=== PATIENT | female | born 1965 | race Caucasian/White ===

== ENCOUNTER → 2017-10-06 | Outpatient (CLI) | payer OTHER ==
--- NOTE | 2017-10-08 08:52 | MM ---
Reason for exam: screening (asymptomatic). Last mammogram was performed 2 years and 11 months ago. History: Retro-pectoral silicone gel implants in both breasts, 1995. Physical Findings: A clinical breast exam by your physician is recommended on an annual basis and results should be correlated with mammographic findings. MG Screening Mammo Implant/CAD Bilateral CC, MLO, and ID view(s) were taken. Prior study comparison: November 14, 2014, bilateral MG diag mamm implants MOOSE w CAD. June 24, 2013, CAD bilateral diagnostic mammogram. The breast tissue is almost entirely fat. Bilateral retropectoral silicone implants. No significant changes when compared with prior studies. ASSESSMENT: Negative, BI-RAD 1 RECOMMENDATION: Routine screening mammogram of both breasts in 1 year.
== END | disposition home or self-care (01) ==
LOC: RADMAMWWP 10:43
PROVIDERS: ATTEND Family Medicine
DX: Z12.31 Encounter for screening mammogram for malignant neoplasm of breast (principal)
CPT/HCPCS: 77067

== ENCOUNTER → 2017-10-13 | Outpatient (CLI) | payer OTHER | END | disposition home or self-care (01) | LOC: LABPAT 14:20 | PROVIDERS: ATTEND Orthopaedic Surgery | DX: Z01.818 Encounter for other preprocedural examination (principal) | CPT/HCPCS: 87070 ==

== ENCOUNTER 2017-11-09 07:19 | Inpatient (IN) | payer OTHER ==
[2017-10-29 14:58] VITALS: BMI 40.3
[~2017-11-09 07:19] MED LIST: ACETAMINOPHEN TAB 500 MG TAB PO ONE; DEXAMETHASONE SOD PHOSPHATE 10 MG/ML 1 ML VIAL IV ONE; DIAZEPAM 5 MG TAB PO PRN; HYDROcodone/APAP 5-325MG 1 EACH TAB PO PRN; HYDROmorphone 0.5 MG/0.5 ML SYRINGE IVP PRN; HYDROmorphone 1 MG/ML 1 ML SYRINGE IVP PRN; LIDOCAINE 1% 20 ML VIAL (10MG/ML) FOR IV START INTRADERMA PRN; MAGNESIUM HYDROXIDE 2,400 MG/10 ML CUP PO PRN; MELOXICAM 7.5 MG TAB PO ONE; MIDAZOLAM 2 MG/2 ML VIAL IV PRN; NALOXONE 0.4 MG/ML 1 ML VIAL IV PRN; ONDANSETRON 4 MG/2 ML VIAL IVP ONE; ONDANSETRON 4 MG/2 ML VIAL IVP PRN; ROPIVACAINE 246.25 MG, EPINEPHrine 0.5 MG, KETOROLAC 30 MG, cloNIDine HCL/PF 80 MCG, WA... MISCELLANE ONE; SCOPOLAMINE 1.5MG/72HR PATCH TRANSDERM ONE; TRANEXAMIC ACID 1,000 MG in SODIUM CHLORIDE 0.9% 50 ML IVPB ONE; ceFAZolin IN SWFI 2 GM/20 ML SYRINGE IVP ONE; hydrOXYzine PAMOATE 25 MG CAP PO PRN
[2017-11-09] MEDS: LACTATED RINGERS 1,000 ML IV SCH (08:10)
[2017-11-09 08:11] LABS: Glucose,Whole Blood 193 mg/dL (75-99)
[2017-11-09] MEDS ORDERED: ASPIRIN 325 MG TAB PO SCH (09:00)
[2017-11-09] MEDS ORDERED: SODIUM CHLORIDE 0.9% IRRIG 1,000 ML BTL IRRIGATION ONE (09:30)
[2017-11-09] MEDS ORDERED: PHENYLEPHRINE-0.9% NACL SYG 1 MG/10 ML SYRINGE ONE (09:30)
[2017-11-09] MEDS ORDERED: fentaNYL (PF) 50 MCG/ML 2 ML AMP ONE (09:30)
[2017-11-09] MEDS ORDERED: TRANEXAMIC ACID 1,000 MG/10 ML VIAL ONE (09:30)
[2017-11-09] MEDS ORDERED: SODIUM CHLORIDE 0.9% 100 ML BAG ONE (09:30)
[2017-11-09] MEDS ORDERED: MIDAZOLAM 2 MG/2 ML VIAL ONE (09:30)
[2017-11-09] MEDS ORDERED: PROPOFOL 10 MG/ML 20 ML VIAL IV ONE (09:30)
[2017-11-09] MEDS ORDERED: HEPARIN SODIUM,PORCINE 10,000 UNIT/ML 1 ML VIAL ONE (09:30)
[2017-11-09] MEDS ORDERED: ceFAZolin 3,000 MG in SODIUM CHLORIDE 0.9% IRRIGATIO 3,000 ML IRRIGATION ONE (09:59)
[2017-11-09] MEDS ORDERED: LACTATED RINGERS 1,000 ML IV ONE (10:17)
--- NOTE | 2017-11-09 11:03 | P.OP ---
Date of Procedure: 11/09/17 Preoperative Diagnosis: Severe osteoarthritis left hip Postoperative Diagnosis: Severe osteoarthritis left hip Procedure(s) Performed: Left total hip arthroplasty with a direct anterior approach Implants: Caputo and nephew Polarstem size 1 standard Caputo & Nephew R3, 3 hole acetabular shell, 52 mm Captuo & Nephew reflection 6.5 mm cancellus screw, 20 mm 2 Caputo & Nephew R3, XLPE 20 acetabular liner Caputo & Nephew Oxinium femoral head 36 m, -3 All components were press-fit. The articulation is Oxinium on polyethylene. Anesthesia: spinal Surgeon: Peterson Dejesus Natural Remedy Consultant #1: Florencia Casillas Estimated Blood Loss (ml): 50 Pathology: other (Femoral head) Condition: stable Disposition: PACU Indications for Procedure: After failure of conservative treatment we discussed the surgical and nonsurgical treatment options at length. Patient wishes to proceed with a total hip arthroplasty with a direct anterior approach. Complications specific to this procedure were discussed at length, including but not limited to infection, leg length discrepancy, dislocation, and nerve injury. Patient is aware of all these complications and informed consent was obtained Operative Findings: The operative findings are consistent with severe osteoarthritis of the left hip Description of Procedure: Patient was seen and evaluated in the preoperative area, consent was reviewed, and the surgical site was marked with a skin marker. Patient was then brought to the operating room and given prophylactic antibiotics intravenously. 1 g of Tranexamic acid was also given. A spinal anesthetic was administered by the anesthesia department. The patient was then placed on the [place] table with the bony prominences well-padded. The hip area was then prepped and draped in usual sterile fashion. A universal timeout was then performed, which confirmed the patient's name, surgical site, ALLERGIES, and procedure being performed. Next the incision site was located at 1 cm distal and 1 cm lateral to the anterior superior iliac spine. The skin and subcutaneous tissues were sharply incised. Incision was carefully dissected down to the fascia overlying the tensor fascia homar muscle. This fascia was then incised in line with the incision. Next, using blunt finger dissection, the tensor fascia homar muscle was dissected off its investing fascia. The muscle was then carefully retracted laterally with a cobra retractor over the lateral neck of the femur. Next, the circumflex vessels were identified and cauterized using the AquaMantis device. The anterior hip capsule was then exposed. The capsule was then opened and an inverted T fashion. Cobra retractors were then placed intracapsularly. The proximal femur was then visualized. The femoral neck was then osteotomized appropriate level above the lesser trochanter. Small amount of traction was placed with the [place] table. A small wedge of bone was then removed from the remaining femoral head. Next, using a corkscrew femoral head was easily removed from the acetabulum. On gross visual inspection, the femoral head had complete loss of articular cartilage in multiple periarticular osteophytes. Attention was then turned to the acetabulum. the acetabulum was exposed and any remaining labrum was excised. Sequential reaming of the acetabulum was performed using fluoroscopic guidance. When the appropriate size was reached, a trial was then placed. The position and fit of the trial was checked with fluoroscopy. The trial was then removed. Then, using fluoroscopic guidance, the final implant was impacted at 20 of anteversion and 40 of abduction, and fully seated in the acetabulum. 2 screws were then placed in the acetabulum. Again fluoroscopy was used to check position of the screws. Next, the liner was then impacted, with a 20 elevated liner located in the anterior superior quadrant. Component locking was confirmed. Attention was then directed to the femur. With the aid of the [place] table, the femur was externally rotated to approximately 130, extended, and abducted under the opposite leg. A side hook was then placed under the proximal femur, and the side hook elevator was used to elevate the proximal femur. Retractors were then placed. A capsular release was performed, as well as a release of the conjoined tendon, which afforded excellent visualization of the proximal femur. Next, a box osteotome was used to lateralize the proximal femur. A redye hand was then used to locate the femoral canal. Sequential broaching was then performed with appropriate size which afforded excellent fixation in the proximal femur. A trial was then placed with appropriate head and neck, and the hip was gently reduced with the aid of the [place] table. Fluoroscopy was then used to check position of the components, as well as to ensure equal leg lengths. The hip was then gently dislocated and the trials were then removed. Final implants were then impacted and the hip was again reduced. Final fluoroscopic x-rays confirmed that the components were in anatomic position, as well as equal leg lengths. The hip was also taken through range of motion, and found to be stable. The hip was then copiously irrigated with antibiotic solution with pulsatile lavage. The hip was then irrigated with Irrisept solution. The soft tissues were then injected with a ropivacaine solution, which consisted of 246.25 mg of ropivacaine, 0.5 mg of epinephrine, 30 mg of Toradol, 80 g of clonidine, and 48.45 mL of sterile water, for a total of 100 mL of fluid injected. A second dose of 1 g of Tranexamic acid was also given. the fascia was then closed with 2-0 strata fix suture. The subcutaneous tissue was closed with 3-0 Vicryl. The subcuticular tissue was closed with 3-0 strata fix suture. The skin was then closed with Dermabond glue and a sterile silver dressing. The patient was then transferred to the recovery room in stable condition. The leasing assistant TAMERA Steen was required due to the complexity of surgery, and the need for skilled surgical asst for positioning, draping, exposure, retraction, and closure of the wound.
--- NOTE | 2017-11-09 11:13 | FL ---
Fluoroscopy HISTORY: Hip arthroplasty 59 seconds fluoroscopy time supplied to the referring clinician. 2 intraoperative C-arm images docum ent the procedure. See dictated report from orthopedic surgery.
[2017-11-09 11:41] LABS: Glucose,Whole Blood 196 mg/dL (75-99)
[2017-11-09] MEDS ORDERED: INSULIN ASPART 100 UNIT/ML 1 ML 10 ML VIAL SQ ONE (11:42)
--- NOTE | 2017-11-09 11:50 | XR ---
EXAMINATION TYPE: XR Hip Limited LT DATE OF EXAM: 11/09/2017 COMPARISON: NONE HISTORY: Postop TECHNIQUE: One view submitted. FINDINGS: There is a prosthetic hip in near anatomic alignment. There is soft tissue edema and emphysema. IMPRESSION: 1. Postoperative change. Appears in near-anatomic alignment.
[2017-11-09] MEDS ORDERED: ALBUTEROL NEBULIZED 2.5 MG/3 ML INHALATION PRN (13:29)
[2017-11-09] MEDS ORDERED: NICOTINE POLACRILEX 2 MG GUM BUCCAL PRN (13:38)
--- NOTE | 2017-11-09 13:38 | P.CONS ---
History of Present Illness - Reason for Consult Consult date: 11/09/17 Medical management Requesting physician: Peterson Dejesus - Chief Complaint Left total hip arthroplasty - History of Present Illness This is a 52-year-old female with a known past medical history of osteoarthritis , hypertension, hyperlipidemia, diabetes mellitus type 2, and asthma. We have been consulted for medical management. She underwent a left total hip arthroplasty today. Tolerated surgery well. Pain is controlled. She denies any chest pain or shortness of breath. Denies any nausea or vomiting. She does report having some loose stools yesterday after eating Oreo cookies. She does report one loose stool this morning prior to surgery. Since then she has had no bowel movement. Senokot has been discontinued at this point. Patient denies any abdominal pain any fevers chills or sweats. Denies any burning with urination. Review of Systems Please refer to HPI otherwise unremarkable Past Medical History Past Medical History: Diabetes Mellitus, Hyperlipidemia, Hypertension Additional Past Medical History / Comment(s): Arthritis, Carpal tunnel syndrome History of Any Multi-Drug Resistant Organisms: None Reported Past Surgical History: Tonsillectomy, Uterine Ablation Additional Past Surgical History / Comment(s): BILATERAL BREAST INMPLANTS 1995 Past Anesthesia/Blood Transfusion Reactions: No Reported Reaction Additional Past Anesthesia/Blood Transfusion Reaction / Comm: HARD TO WAKE UP AFTER IMPLANTS. Smoking Status: Former smoker - Past Family History Mother Family Medical History: Diabetes Mellitus, Hypertension, Myocardial Infarction ( [place]) Medications and Allergies Home Medications Medication Instructions Recorded Confirmed Type Albuterol Sulfate [Proair Hfa] 2 puff INHALATION RT-Q4H PRN 07/20/13 11/09/17 History Aspirin 81 mg PO DAILY 07/20/13 11/09/17 History Metoprolol Tartrate [Lopressor] 25 mg PO BID 07/20/13 11/09/17 History Simvastatin 20 mg PO HS 07/20/13 11/09/17 History metFORMIN HCL [Glucophage] 500 mg PO BID 07/20/13 11/09/17 History Cetirizine HCl [Zyrtec] 10 mg PO DAILY 10/29/17 11/09/17 History Diclofenac Sodium [Voltaren] 75 mg PO BID 10/29/17 11/09/17 History Niacin [Plain Niacin] 500 mg PO DAILY 10/29/17 11/09/17 History [place]ettleton-3 Fatty Acids [[place]ettleton-3] 1,000 mg PO DAILY 10/29/17 11/09/17 History Turmeric Root Extract [Turmeric] 500 mg PO DAILY 10/29/17 11/09/17 History Venlafaxine HCl [Effexor XR] 150 mg PO BID 10/29/17 11/09/17 History buPROPion SR [Wellbutrin Sr] 150 mg PO DAILY 10/29/17 11/09/17 History tiZANidine [Zanaflex] 2 mg PO BID 10/29/17 11/09/17 History Lisinopril [Zestril] 10 mg PO DAILY 11/09/17 11/09/17 History Allergies Allergy/AdvReac Type Severity Reaction Status Date / Time No Known Allergies Allergy Verified 11/09/17 12:19 Physical Exam Vitals: Vital Signs Temp Pulse Resp BP Pulse Ox 11/09/17 11:58 100 16 119/57 98 11/09/17 11:32 99 16 118/58 96 11/09/17 11:20 97.0 F L 108 H 16 118/55 93 L 11/09/17 07:44 98.1 F 112 H 20 172/88 97 Intake and Output 11/08/17 11/09/17 11/09/17 22:59 06:59 14:59 Intake Total 1751 Output Total 50 Balance 1701 Intake: IV 1751 Output: Estimated Blood Loss 50 Head normocephalic Neck supple Lungs clear to auscultation bilaterally no wheezing or crackles Heart regular rate and rhythm S1-S2, no rub or gallop Abdomen is soft nontender nondistended positive bowel sounds no hepatosplenomegaly Extremities no edema. Left hip bandage clean dry and intact Neuro alert and orientated to 3 Results Labs: Abnormal Lab Results - Last 24 Hours (Table) 11/09/17 11/09/17 Range/Units 08:04 11:39 POC Glucose (mg/dL) 193 H 196 H (75-99) mg/dL Assessment and Plan Assessment: 1. Left hip osteoarthritis: Status post left total hip arthroplasty. Continue aspirin 325 mg twice a day for DVT prophylaxis. Pain control per orthopedic protocol. Continue PT 2. Diabetes mellitus type 2: Continue metformin. Add sliding scale coverage. Check A1c 3. Essential hypertension resume blood pressure meds. Blood pressure stable 4. History of mild intermittent asthma. Continue with albuterol inhaler as needed. No evidence of exacerbation 5. Hyperlipidemia 6. Nicotine dependence: Patient reports that she chews Nicorette gum every 2-3 hours. She has not smoked a cigarette in 7 years 7. Diarrhea prior to admission. Now improving. We'll monitor. Discontinue stool softener GI prophylaxis Pepcid Thank you for this consultation. We will continue to follow along during patient's hospitalization. Time with Patient: Greater than 30 (Greater than 60% of the total time spent in counseling and coordination of care.I performed an examination of the patient and discussed their management with the physician Automatic Head Sawyer. I have reviewed the Physician Automatic Head Sawyer's notes and agree with the documented findings and plan of care)
[2017-11-09] MEDS: HYDROcodone/APAP 5-325MG 1 EACH TAB PO PRN ×2 (14:17→20:34)
[2017-11-09] MEDS: SODIUM CHLORIDE 0.9% 1,000 ML IV SCH (16:12)
[2017-11-09] MEDS: HYDROmorphone 1 MG/ML 1 ML SYRINGE IVP PRN (16:13)
[2017-11-09 17:18] LABS: Glucose,Whole Blood 236 mg/dL (75-99)
[2017-11-09] MEDS: INSULIN ASPART 100 UNIT/ML 1 ML 10 ML VIAL SQ SCH ×2 (18:41→20:36)
[2017-11-09] MEDS: metFORMIN 500 MG TAB PO SCH (18:41)
[2017-11-09] MEDS: ceFAZolin IN SWFI 2 GM/20 ML SYRINGE IVP SCH (19:22)
[2017-11-09 20:07] LABS: Glucose,Whole Blood 299 mg/dL (75-99)
[2017-11-09] MEDS: ATORVASTATIN 10 MG TAB PO SCH (20:35)
[2017-11-09] MEDS: VENLAFAXINE HCL ER 150 MG CAP PO SCH (20:35)
[2017-11-09] MEDS: ASPIRIN 325 MG TAB PO SCH (20:35)
[2017-11-09] MEDS: METOPROLOL TARTRATE 25 MG TAB PO SCH (20:35)
[2017-11-09] MEDS ORDERED: SENNOSIDES-DOCUSATE SODIUM 1 EACH TAB PO SCH (21:00)
[2017-11-10] MEDS: SODIUM CHLORIDE 0.9% 1,000 ML IV SCH ×2 (00:25→14:24)
[2017-11-10] MEDS: ceFAZolin IN SWFI 2 GM/20 ML SYRINGE IVP SCH (01:26)
[2017-11-10] MEDS: HYDROmorphone 1 MG/ML 1 ML SYRINGE IVP PRN ×2 (01:30→06:05)
[2017-11-10] MEDS: LACTATED RINGERS 1,000 ML IV SCH (06:20)
[2017-11-10 07:18] LABS: Glucose,Whole Blood 270 mg/dL (75-99)
[2017-11-10] MEDS: metFORMIN 500 MG TAB PO SCH ×2 (08:11→17:42)
[2017-11-10] MEDS: buPROPion SR 150 MG TABLET.ER PO SCH (08:11)
[2017-11-10] MEDS: INSULIN ASPART 100 UNIT/ML 1 ML 10 ML VIAL SQ SCH ×4 (08:11→20:41)
[2017-11-10] MEDS: ASPIRIN 325 MG TAB PO SCH ×2 (08:11→20:40)
[2017-11-10] MEDS: LISINOPRIL 10 MG TAB PO SCH (08:11)
[2017-11-10] MEDS: MELOXICAM 7.5 MG TAB PO SCH (08:11)
[2017-11-10] MEDS: NIACIN TR 500 MG CAPSULE.ER PO SCH (08:11)
[2017-11-10] MEDS: FAMOTIDINE 20 MG TAB PO SCH (08:12)
[2017-11-10] MEDS: LORATADINE 10 MG TAB PO SCH (08:12)
[2017-11-10] MEDS: METOPROLOL TARTRATE 25 MG TAB PO SCH ×2 (08:12→20:40)
[2017-11-10] MEDS: VENLAFAXINE HCL ER 150 MG CAP PO SCH ×2 (08:12→20:40)
[2017-11-10] MEDS ORDERED: HYDROcodone/APAP 7.5-325MG 1 EACH TAB PO PRN (08:37)
[2017-11-10] MEDS ORDERED: NON-FORMULARY DRUG (Omega-3 Fatty Acids [Omega-3] 1,000 MG) PO SCH (09:00)
--- NOTE | 2017-11-10 09:13 | P.DS ---
Providers Date of admission: 11/09/17 07:19 Expected date of discharge: 11/10/17 Attending physician: Peterson Dejesus Consults: 11/09/17 07:02 Consult Physician Routine Consulting Provider: Obed Capellan Consult Reason/Comments: medical mangement Do you want consulting provider notified?: Yes Primary care physician: Stated None - Discharge Diagnosis(es) (1) Primary osteoarthritis of left hip Current Visit: Yes Status: Acute (2) S/P total hip arthroplasty Current Visit: Yes Status: Acute Hospital Course: This is a 52-year-old female with known history of degenerative arthritis of the left hip. The patient presents for evaluation. After discussion and consideration patient elects to proceed with total hip arthroplasty. The patient is seen preoperatively by Dr. Dejesus and medically cleared for surgery by their primary care physician. Patient is admitted to [facility] on 11/09/2017 for total hip arthroplasty. The procedures performed without complication or sequelae. The patient is doing well postoperatively. Labs and vital signs are stable on day of discharge. On day of discharge patient's hip incision is healing well. There is minimal erythema. There is no drainage noted at this time. There is minimal soft tissue swelling to the hip and thigh. Patient has full foot and ankle motion without difficulty or pain. Neurovascular status to the left lower extremity is intact. Patient is discharged home in good condition. Please see med rec for accurate list of home medications. Plan - Discharge Summary Discharge Rx Participant: Yes New Discharge Prescriptions: New Aspirin 325 mg PO BID #60 tab HYDROcodone/APAP 7.5-325MG [Tanner 7.5-325] 1 - 2 tab PO Q4-6H PRN #84 tab PRN Reason: Pain Sennosides [Senokot] 1 tab PO BID PRN #60 tablet PRN Reason: Constipation No Action Metoprolol Tartrate [Lopressor] 25 mg PO BID metFORMIN HCL [Glucophage] 500 mg PO BID Albuterol Sulfate [Proair Hfa] 2 puff INHALATION RT-Q4H PRN PRN Reason: Shortness Of Breath Simvastatin 20 mg PO HS Aspirin 81 mg PO DAILY buPROPion SR [Wellbutrin Sr] 150 mg PO DAILY Cetirizine HCl [Zyrtec] 10 mg PO DAILY Diclofenac Sodium [Voltaren] 75 mg PO BID Niacin [Plain Niacin] 500 mg PO DAILY [place]-3 Fatty Acids [Volga-3] 1,000 mg PO DAILY tiZANidine [Zanaflex] 2 mg PO BID Turmeric Root Extract [Turmeric] 500 mg PO DAILY Venlafaxine HCl [Effexor XR] 150 mg PO BID Lisinopril [Zestril] 10 mg PO DAILY Discharge Medication List Albuterol Sulfate [Proair Hfa] 2 puff INHALATION RT-Q4H PRN 07/20/13 [History] Aspirin 81 mg PO DAILY 07/20/13 [History] Metoprolol Tartrate [Lopressor] 25 mg PO BID 07/20/13 [History] Simvastatin 20 mg PO HS 07/20/13 [History] metFORMIN HCL [Glucophage] 500 mg PO BID 07/20/13 [History] Cetirizine HCl [Zyrtec] 10 mg PO DAILY 10/29/17 [History] Diclofenac Sodium [Voltaren] 75 mg PO BID 10/29/17 [History] Niacin [Plain Niacin] 500 mg PO DAILY 10/29/17 [History] Volga-3 Fatty Acids [Volga-3] 1,000 mg PO DAILY 10/29/17 [History] Turmeric Root Extract [Turmeric] 500 mg PO DAILY 10/29/17 [History] Venlafaxine HCl [Effexor XR] 150 mg PO BID 10/29/17 [History] buPROPion SR [Wellbutrin Sr] 150 mg PO DAILY 10/29/17 [History] tiZANidine [Zanaflex] 2 mg PO BID 10/29/17 [History] Lisinopril [Zestril] 10 mg PO DAILY 11/09/17 [History] Aspirin 325 mg PO BID #60 tab 11/10/17 [Rx] HYDROcodone/APAP 7.5-325MG [Tanner 7.5-325] 1 - 2 tab PO Q4-6H PRN #84 tab [Rx] Sennosides [Senokot] 1 tab PO BID PRN #60 tablet 11/10/17 [Rx] Follow up Appointment(s)/Referral(s): Peterson Dejesus DO [Doctor of Osteopathic Medicine] - 2 Weeks Activity/Diet/Wound Care/Special Instructions: Weightbearing as tolerated with walker Leave dressing intact. Dressing may be removed by home care nurse in 10 days. May shower with dressing on. Follow-up with [facility] in 2 weeks, please call with any questions or concerns [phone] Discharge Disposition: HOME WITH HOME HEALTH SERVICES
[2017-11-10] MEDS: HYDROcodone/APAP 7.5-325MG 1 EACH TAB PO PRN ×2 (09:37→19:10)
[2017-11-10 11:44] LABS: Glucose,Whole Blood 189 mg/dL (75-99)
[2017-11-10 12:01] LABS: Basophils % (A) 0 %; Eosinophils # (A) 0.1 k/uL (0-0.7); Eosinophils % (A) 1 %; HGB 11.2 gm/dL (11.4-16.0); Hypochromasia Moderate; Lymphocytes # (A) 1.3 k/uL (1.0-4.8); Lymphocytes % (A) 14 %; MCH 29.8 pg (25.0-35.0); MCHC 31.9 g/dL (31.0-37.0); MCV 93.3 fL (80.0-100.0); Mean Platelet Volume 8.6; Monocytes # (A) 0.8 k/uL (0-1.0); Monocytes % (A) 8 %; Neutrophils # (A) 7.5 k/uL (1.3-7.7); Neutrophils % (A) 75 %; Platelet Count 209 k/uL (150-450); RBC 3.75 m/uL (3.80-5.40); RDW 13.6 % (11.5-15.5); WBC 9.9 k/uL (3.8-10.6)
[2017-11-10 12:10] LABS: ALT 34 U/L (9-52); AST 36 U/L (14-36); Albumin 3.6 g/dL (3.5-5.0); Alkaline Phosphatase 128 U/L (38-126); Anion Gap 10 mmol/L; Blood Urea Nitrogen 17 mg/dL (7-17); Calcium 9.2 mg/dL (8.4-10.2); Carbon Dioxide 25 mmol/L (22-30); Chloride 105 mmol/L (98-107); Glucose 250 mg/dL (74-99); Potassium 4.5 mmol/L (3.5-5.1); Sodium 140 mmol/L (137-145); Total Bilirubin 0.2 mg/dL (0.2-1.3); Total Protein 6.6 g/dL (6.3-8.2)
--- NOTE | 2017-11-10 13:15 | P.PN ---
Subjective Progress Note Date: 11/10/17 This is a 52-year-old female with a known past medical history of osteoarthritis , hypertension, hyperlipidemia, diabetes mellitus type 2, and asthma. We have been consulted for medical management. She underwent a left total hip arthroplasty today. Tolerated surgery well. Pain is controlled. She denies any chest pain or shortness of breath. Denies any nausea or vomiting. She does report having some loose stools yesterday after eating Oreo cookies. She does report one loose stool this morning prior to surgery. Since then she has had no bowel movement. Senokot has been discontinued at this point. Patient denies any abdominal pain any fevers chills or sweats. Denies any burning with urination. 11/10/2017 patient is status post left total hip arthroplasty. Patient reporting pain in that left hip. She rates it a 9 out of 10. Orthopedics have cleared her for discharge. Patient has been tachycardic today. EKG showing sinus tachycardia. Heart rate as high as 127. Now heart rate is in the low 100s. She is on a beta maría. Her tachycardia could be pain related. She also is chewing Nicorette gum every couple of hours. Discussed with patient today decrease how much Nicorette gum she should use. Denies any chest pain. Denies any heart palpitations. Denies any shortness of breath. Denies any nausea vomiting bowel movement changes or urinary symptoms. Objective - Vital Signs Vital signs: Vital Signs Temp 97.5 F L 11/10/17 07:00 Pulse 127 H 11/10/17 07:00 Resp 16 11/10/17 07:00 BP 138/66 11/10/17 07:00 Pulse Ox 94 L 11/10/17 07:00 Intake & Output 11/09/17 11/10/17 11/10/17 18:59 06:59 18:59 Intake Total 1881 1240 Output Total 450 Balance 1431 1240 Weight 106.594 kg Intake: IV 1881 520 Sodium Chloride 0.9% 1, 130 520 000 ml @ 65 mls/hr IV . [id number] ANA Rx#:[id number] Intake, IV Titration 520 Amount Sodium Chloride 0.9% 1, 520 000 ml @ 65 mls/hr IV . [id number] ANA Rx#:[id number] Other 200 Output: Urine 400 Estimated Blood Loss 50 Other: # Voids 3 2 - Exam Head normocephalic Neck supple Lungs clear to auscultation bilaterally no wheezing or crackles Heart regular rate and rhythm S1-S2, no rub or gallop Abdomen is soft nontender nondistended positive bowel sounds no hepatosplenomegaly Extremities no edema. Bruising around dressing site Neuro alert and orientated to 3 - Labs CBC & Chem 7: 11/10/17 07:55 11/10/17 07:55 Labs: Abnormal Lab Results - Last 24 Hours (Table) 11/09/17 11/09/17 11/10/17 Range/Units 17:09 20:05 07:10 RBC (3.80-5.40) m/uL Hgb (11.4-16.0) gm/dL Glucose (74-99) mg/dL POC Glucose (mg/dL) 236 H 299 H 270 H (75-99) mg/dL Alkaline Phosphatase (38-126) U/L 11/10/17 11/10/17 11/10/17 Range/Units 07:55 07:55 11:36 RBC 3.75 L (3.80-5.40) m/uL Hgb 11.2 L (11.4-16.0) gm/dL Glucose 250 H (74-99) mg/dL POC Glucose (mg/dL) 189 H (75-99) mg/dL Alkaline Phosphatase 128 H (38-126) U/L Assessment and Plan Assessment: 1. Left hip osteoarthritis: Status post left total hip arthroplasty. Continue aspirin 325 mg twice a day for DVT prophylaxis. 2. Diabetes mellitus type 2: Continue metformin. Add sliding scale coverage. Patient did have problems elevated blood sugars secondary to the dexamethasone given in the OR. Patient was given glucometer. She'll monitor blood sugars 3. Essential hypertension resume blood pressure meds. Blood pressure stable 4. History of mild intermittent asthma. Continue with albuterol inhaler as needed. No evidence of exacerbation 5. Hyperlipidemia 6. Nicotine dependence: Patient reports that she chews Nicorette gum every 2-3 hours. She has not smoked a cigarette in 7 years 7. Diarrhea prior to admission. Now resolved 8. Sinus tachycardia: Possibly related to pain. No evidence of electrolyte abnormality. Continue with her beta maría. Patient will be discharged home with [place] 7.5 one to 2 tabs every 4-6 hours as needed for pain. Recommend that she also cut back on the Nicorette gum. Patient is medically stable for discharge. She has been educated if she starts to have severe heart palpitations, shortness of breath or chest discomfort that she should present back to the emergency room. Patient will follow-up with her PCP in 1 week. I performed an examination of the patient and discussed their management with the physician Treatment Specialist. I have reviewed the Physician Treatment Specialist's notes and agree with the documented findings and plan of care
[2017-11-10] MEDS: ETODOLAC 300 MG CAPSULE PO SCH ×2 (14:23→21:28)
[2017-11-10 16:40] LABS: Glucose,Whole Blood 217 mg/dL (75-99)
[2017-11-10 17:57] LABS: Hemoglobin A1C 8.2 % (4.0-6.0)
[2017-11-10 19:45] LABS: Glucose,Whole Blood 235 mg/dL (75-99)
[2017-11-10] MEDS: ATORVASTATIN 10 MG TAB PO SCH (20:40)
[2017-11-11] MEDS: HYDROcodone/APAP 7.5-325MG 1 EACH TAB PO PRN ×2 (04:24→14:58)
[2017-11-11] MEDS: SODIUM CHLORIDE 0.9% 1,000 ML IV SCH (05:44)
[2017-11-11] MEDS: LACTATED RINGERS 1,000 ML IV SCH (05:45)
[2017-11-11 07:01] LABS: Glucose,Whole Blood 235 mg/dL (75-99)
[2017-11-11 07:38] VITALS: BP 103/64; PULSE 109; RESP 16; TEMP 98.2
[2017-11-11] MEDS: INSULIN ASPART 100 UNIT/ML 1 ML 10 ML VIAL SQ SCH ×2 (08:13→14:58)
[2017-11-11] MEDS: MELOXICAM 7.5 MG TAB PO SCH (08:14)
[2017-11-11] MEDS: metFORMIN 500 MG TAB PO SCH (08:14)
[2017-11-11] MEDS: ASPIRIN 325 MG TAB PO SCH (08:14)
[2017-11-11] MEDS: METOPROLOL TARTRATE 25 MG TAB PO SCH (08:14)
[2017-11-11] MEDS: FAMOTIDINE 20 MG TAB PO SCH (08:15)
[2017-11-11] MEDS: ETODOLAC 300 MG CAPSULE PO SCH (08:15)
[2017-11-11] MEDS: LISINOPRIL 10 MG TAB PO SCH (08:15)
[2017-11-11] MEDS: NIACIN TR 500 MG CAPSULE.ER PO SCH (08:15)
[2017-11-11] MEDS: buPROPion SR 150 MG TABLET.ER PO SCH (08:15)
[2017-11-11] MEDS: VENLAFAXINE HCL ER 150 MG CAP PO SCH (08:15)
[2017-11-11] MEDS: LORATADINE 10 MG TAB PO SCH (08:15)
[2017-11-11 11:39] LABS: Glucose,Whole Blood 149 mg/dL (75-99)
[2017-11-11] MEDS ORDERED: HYDROmorphone 2 MG TAB PO PRN ×2 (13:42)
[2017-11-11] MEDS ORDERED: HYDROmorphone 4 MG TABLET PO PRN (13:43)
--- NOTE | 2017-11-11 13:50 | P.PN ---
Subjective Progress Note Date: 11/11/17 This is a 52-year-old female with a known past medical history of osteoarthritis , hypertension, hyperlipidemia, diabetes mellitus type 2, and asthma. We have been consulted for medical management. She underwent a left total hip arthroplasty today. Tolerated surgery well. Pain is controlled. She denies any chest pain or shortness of breath. Denies any nausea or vomiting. She does report having some loose stools yesterday after eating Oreo cookies. She does report one loose stool this morning prior to surgery. Since then she has had no bowel movement. Senokot has been discontinued at this point. Patient denies any abdominal pain any fevers chills or sweats. Denies any burning with urination. 11/10/2017 patient is status post left total hip arthroplasty. Patient reporting pain in that left hip. She rates it a 9 out of 10. Orthopedics have cleared her for discharge. Patient has been tachycardic today. EKG showing sinus tachycardia. Heart rate as high as 127. Now heart rate is in the low 100s. She is on a beta maría. Her tachycardia could be pain related. She also is chewing Nicorette gum every couple of hours. Discussed with patient today decrease how much Nicorette gum she should use. Denies any chest pain. Denies any heart palpitations. Denies any shortness of breath. Denies any nausea vomiting bowel movement changes or urinary symptoms. 11/11/2017 discharge delayed yesterday due to increased pain. Today patient states that her pain is improved. At this time patient denies chest pain or shortness of breath. Denies any nausea vomiting or diarrhea. Denies any urinary burning or frequency. Plan for discharge home today Objective - Vital Signs Vital signs: Vital Signs Temp 98.2 F 11/11/17 07:38 Pulse 109 H 11/11/17 07:38 Resp 16 11/11/17 07:38 BP 103/64 11/11/17 07:38 Pulse Ox 94 L 11/11/17 07:38 Intake & Output 11/10/17 11/11/17 11/11/17 18:59 06:59 18:59 Intake Total 240 Balance 240 Intake: Oral 240 Other: Voiding Method Toilet # Voids 3 2 - Exam Head normocephalic Neck supple Lungs clear to auscultation bilaterally no wheezing or crackles Heart regular rate and rhythm S1-S2, no rub or gallop Abdomen is soft nontender nondistended positive bowel sounds no hepatosplenomegaly Extremities no edema. Bruising around dressing site Neuro alert and orientated to 3 - Labs CBC & Chem 7: 11/10/17 07:55 11/10/17 07:55 Labs: Abnormal Lab Results - Last 24 Hours (Table) 11/10/17 11/10/17 11/10/17 Range/Units 07:55 16:35 19:44 POC Glucose (mg/dL) 217 H 235 H (75-99) mg/dL Hemoglobin A1c 8.2 H (4.0-6.0) % 11/11/17 11/11/17 Range/Units 06:58 11:34 POC Glucose (mg/dL) 235 H 149 H (75-99) mg/dL Hemoglobin A1c (4.0-6.0) % Assessment and Plan Assessment: 1. Left hip osteoarthritis: Status post left total hip arthroplasty. Continue aspirin 325 mg twice a day for DVT prophylaxis. 2. Diabetes mellitus type 2: Continue metformin. Add sliding scale coverage. Patient did have problems elevated blood sugars secondary to the dexamethasone given in the OR. Patient was given glucometer. She'll monitor blood sugars 3. Essential hypertension resume blood pressure meds. Blood pressure stable 4. History of mild intermittent asthma. Continue with albuterol inhaler as needed. No evidence of exacerbation 5. Hyperlipidemia 6. Nicotine dependence: Patient reports that she chews Nicorette gum every 2-3 hours. She has not smoked a cigarette in 7 years 7. Diarrhea prior to admission. Now resolved 8. Sinus tachycardia: Possibly related to pain. No evidence of electrolyte abnormality. Continue with her beta maría. Patient will be discharged home with [place] 7.5 one to 2 tabs every 4-6 hours as needed for pain. Recommend that she also cut back on the Nicorette gum. Patient is medically stable for discharge. She has been educated if she starts to have severe heart palpitations, shortness of breath or chest discomfort that she should present back to the emergency room. Patient will follow-up with her PCP in 1 week. I performed an examination of the patient and discussed their management with the Nurse Practitioner. I have reviewed the Nurse Practitioner's notes and agree with the documented findings and plan of care
== END 2017-11-11 15:37 | disposition home health service (06) | DRG 470 ==
LOC: 2ORMAIN 07:19 → 3SUR 11:24
PROVIDERS: ADMIT Orthopaedic Surgery; ATTEND Orthopaedic Surgery
PROC: 30233N0 Transfusion of Autologous Red Blood Cells into Peripheral Vein, Percutaneous Approach (ICD-10-PCS; 2017-11-09)
PROC: 0SRB06A Replacement of Left Hip Joint with Oxidized Zirconium on Polyethylene Synthetic Substitute, Uncemented, Open Approach (ICD-10-PCS; principal; 2017-11-09 09:20)
DX: M16.12 Unilateral primary osteoarthritis, left hip (principal); E11.65 Type 2 diabetes mellitus with hyperglycemia; J45.20 Mild intermittent asthma, uncomplicated; I10 Essential (primary) hypertension; E78.5 Hyperlipidemia, unspecified; R19.7 Diarrhea, unspecified; T38.0X5A Adverse effect of glucocorticoids and synthetic analogues, initial encounter; Z79.82 Long term (current) use of aspirin; Z79.84 Long term (current) use of oral hypoglycemic drugs; Z79.899 Other long term (current) drug therapy; Z87.891 Personal history of nicotine dependence; Z83.3 Family history of diabetes mellitus; Z82.49 Family history of ischemic heart disease and other diseases of the circulatory system
CPT/HCPCS: 73501; 80053; 83036; 85025; 86850; 86891; 86900; 86901; 88300; 93005

== ENCOUNTER → 2018-07-19 | Outpatient (CLI) | payer OTHER ==
--- NOTE | 2018-07-19 10:59 | MR ---
EXAMINATION TYPE: MR brain wo/w con DATE OF EXAM: 07/19/2018 COMPARISON: None HISTORY: Headache TECHNIQUE: Multiplanar, multisequence images of the brain and brainstem is performed without and with IV contras t, utilizing 10 mL intravenous Gadavist . FINDINGS: Diffusion weighted images demonstrate no evidence of a recent infarct or other diffusion ab normality. There is no extra-axial fluid collection. Scattered white matter hyperintensities on inv ersion recovery T2-weighted sequences are present, approximately 5-10 lesions all measuring less than 5 mm in the subcortical white matter. The ventricular system and cisternal spaces are normal in size and appearance. The brain volume is age appropriate. Midline structures demonstrate normal morphology, there is a partially empty sella. The craniocervic al junction appears within normal limits. Post contrast images demonstrate no abnormal enhancement. The dural venous sinuses appear patent. The visualized sinuses are remarkable for inflammatory change in the ethmoid air cells, mastoid air cells showing some increased signal on the right and T2-weight ed images, and the globes are intact. IMPRESSION: Nonspecific white matter demyelination could be related to hypertension, migraine headach es, vasculitis, findings are nonspecific. Sinus disease, correlate for mastoiditis.
== END | disposition home or self-care (01) ==
LOC: RADMRIMAIN 09:38
PROVIDERS: ATTEND Family Medicine
DX: G37.9 Demyelinating disease of central nervous system, unspecified (principal)
CPT/HCPCS: 70553; A9585

== ENCOUNTER → 2019-01-12 | Outpatient (CLI) | payer OTHER ==
[2019-01-12 11:51] LABS: HCT 40.2 % (34.0-46.0); HGB 12.7 gm/dL (11.4-16.0); MCH 29.5 pg (25.0-35.0); MCHC 31.6 g/dL (31.0-37.0); MCV 93.3 fL (80.0-100.0); Mean Platelet Volume 6.7; Platelet Count 319 k/uL (150-450); RBC 4.31 m/uL (3.80-5.40); WBC 8.8 k/uL (3.8-10.6)
[2019-01-12 11:54] LABS: INR 0.9 (<1.2); Partial Thromboplastin Time 26.3 sec (22.0-30.0); Prothrombin Time 9.5 sec (9.0-12.0)
[2019-01-12 11:57] LABS: ALT 29 U/L (9-52); AST 19 U/L (14-36); African American GFR (CKD) >90 (>60 ml/min/1.73 sqM); Albumin 4.5 g/dL (3.5-5.0); Alkaline Phosphatase 105 U/L (38-126); Anion Gap 8 mmol/L; Blood Urea Nitrogen 14 mg/dL (7-17); Carbon Dioxide 31 mmol/L (22-30); Chloride 99 mmol/L (98-107); Glucose 103 mg/dL (74-99); Potassium 5.4 mmol/L (3.5-5.1); Sodium 138 mmol/L (137-145); Total Bilirubin 0.3 mg/dL (0.2-1.3); Total Protein 7.5 g/dL (6.3-8.2)
[2019-01-12 12:08] LABS: Appearance,Urine Clear (Clear); Bacteria,Urine Rare /hpf; Bilirubin,Urine Negative (Negative); Blood,Urine Negative (Negative); Color,Urine Yellow; Glucose,Urine (UA) Negative (Negative); Ketones,Urine Negative (Negative); Leukocyte Esterase,Urine Moderate (Negative); Mucus,Urine Rare /hpf; Nitrite,Urine Negative (Negative); PH, Urine 7.5 (5.0-8.0); Protein,Urine Negative (Negative); RBC,Urine 1 /hpf (0-5); Specific Gravity,Urine 1.014 (1.001-1.035); Squamous Epithelial Cell,Urine 4 /hpf (0-4); Urobilinogen,Urine <2.0 mg/dL (<2.0); WBC,Urine 2 /hpf (0-5)
== END | disposition home or self-care (01) ==
LOC: LABPAT 10:25
PROVIDERS: ATTEND Orthopaedic Surgery
DX: Z01.812 Encounter for preprocedural laboratory examination (principal)
CPT/HCPCS: 80053; 81001; 85027; 85610; 85730; 87070

== ENCOUNTER 2019-01-25 05:34 | Inpatient (IN) | payer OTHER ==
[2019-01-20 15:55] VITALS: BMI 38.6
[~2019-01-25 05:34] MED LIST changes: -DEXAMETHASONE SOD PHOSPHATE 10 MG/ML 1 ML VIAL IV ONE; -DIAZEPAM 5 MG TAB PO PRN; +GABAPENTIN 300 MG CAP PO ONE; -HYDROcodone/APAP 5-325MG 1 EACH TAB PO PRN; -HYDROmorphone 0.5 MG/0.5 ML SYRINGE IVP PRN; -HYDROmorphone 1 MG/ML 1 ML SYRINGE IVP PRN; -LIDOCAINE 1% 20 ML VIAL (10MG/ML) FOR IV START INTRADERMA PRN; -MAGNESIUM HYDROXIDE 2,400 MG/10 ML CUP PO PRN; -MIDAZOLAM 2 MG/2 ML VIAL IV PRN; -NALOXONE 0.4 MG/ML 1 ML VIAL IV PRN; -ONDANSETRON 4 MG/2 ML VIAL IVP ONE; -ONDANSETRON 4 MG/2 ML VIAL IVP PRN; -ROPIVACAINE 246.25 MG, EPINEPHrine 0.5 MG, KETOROLAC 30 MG, cloNIDine HCL/PF 80 MCG, WA... MISCELLANE ONE; -SCOPOLAMINE 1.5MG/72HR PATCH TRANSDERM ONE; +TRANEXAMIC ACID 1,000 MG in SODIUM CHLORIDE 0.9% 100 ML IVPB ONE; -TRANEXAMIC ACID 1,000 MG in SODIUM CHLORIDE 0.9% 50 ML IVPB ONE; -ceFAZolin IN SWFI 2 GM/20 ML SYRINGE IVP ONE; -hydrOXYzine PAMOATE 25 MG CAP PO PRN
[2019-01-25] MEDS ORDERED: ONDANSETRON 4 MG/2 ML VIAL IVP ONE (05:51)
[2019-01-25] MEDS ORDERED: DEXAMETHASONE SOD PHOSPHATE 10 MG/ML 1 ML VIAL IV ONE (05:51)
[2019-01-25] MEDS ORDERED: LIDOCAINE 1% 20 ML VIAL (10MG/ML) FOR IV START INTRADERMA PRN (05:51)
[2019-01-25] MEDS ORDERED: HYDROmorphone 0.5 MG/0.5 ML SYRINGE IVP PRN ×3 (05:51→06:57)
[2019-01-25] MEDS ORDERED: ROPIVACAINE 246.25 MG, EPINEPHrine 0.5 MG, KETOROLAC 30 MG, cloNIDine HCL/PF 80 MCG, WA... MISCELLANE ONE ×5 (06:00)
[2019-01-25] MEDS: LACTATED RINGERS 1,000 ML IV SCH (06:30)
[2019-01-25 06:43] LABS: Glucose,Whole Blood 129 mg/dL (75-99)
[2019-01-25] MEDS ORDERED: fentaNYL (PF) 50 MCG/ML 2 ML AMP ONE (06:53)
[2019-01-25] MEDS ORDERED: PHENYLEPHRINE-0.9% NACL SYG 1 MG/10 ML SYRINGE ONE (06:53)
[2019-01-25] MEDS ORDERED: MIDAZOLAM 2 MG/2 ML VIAL ONE (06:53)
[2019-01-25] MEDS ORDERED: HEPARIN SODIUM,PORCINE 10,000 UNIT/ML 1 ML VIAL ONE (06:53)
[2019-01-25] MEDS ORDERED: SODIUM CHLORIDE 0.9% IRRIG 1,000 ML BTL IRRIGATION ONE (06:53)
[2019-01-25] MEDS ORDERED: TRANEXAMIC ACID 1,000 MG/10 ML VIAL ONE (06:53)
[2019-01-25] MEDS ORDERED: SODIUM CHLORIDE 0.9% 100 ML BAG ONE (06:53)
[2019-01-25] MEDS ORDERED: PROPOFOL 10 MG/ML 50 ML VIAL IV ONE (06:53)
[2019-01-25] MEDS ORDERED: HYDROmorphone 1 MG/ML 1 ML SYRINGE IVP PRN (06:57)
[2019-01-25] MEDS ORDERED: ONDANSETRON 4 MG/2 ML VIAL IVP PRN (06:57)
[2019-01-25] MEDS ORDERED: NALOXONE 0.4 MG/ML 1 ML VIAL IV PRN (06:57)
[2019-01-25] MEDS ORDERED: MAGNESIUM HYDROXIDE 2,400 MG/10 ML CUP PO PRN (06:57)
[2019-01-25] MEDS ORDERED: DIAZEPAM 5 MG TAB PO PRN (06:57)
[2019-01-25] MEDS ORDERED: hydrOXYzine PAMOATE 25 MG CAP PO PRN (06:57)
[2019-01-25] MEDS ORDERED: HYDROcodone/APAP 5-325MG 1 EACH TAB PO PRN (06:57)
[2019-01-25] MEDS ORDERED: ceFAZolin 3,000 MG in SODIUM CHLORIDE 0.9% IRRIGATIO 3,000 ML IRRIGATION ONE (06:57)
--- NOTE | 2019-01-25 08:31 | P.OP ---
Date of Procedure: 01/25/19 Preoperative Diagnosis: Severe osteoarthritis right hip Postoperative Diagnosis: Severe osteoarthritis right hip Procedure(s) Performed: Right total hip arthroplasty with a direct anterior approach Implants: Caputo and nephew Polarstem size 1 standard Caputo [employer] Nephew R3, 3 hole acetabular shell, 52 mm Caputo [employer] Nephew reflection 6.5 mm cancellus screw, 20 mm 2 Caputo [employer] Nephew R3, XLPE 20 acetabular liner Caputo [employer] Nephew Oxinium femoral head 36 m, -3 All components were press-fit. The articulation is Oxinium on polyethylene. Anesthesia: spinal Surgeon: Peterson Dejesus Extrusion Press Operator #1: Florencia Casillas Estimated Blood Loss (ml): 200 (69 mL returned with Cell Saver) Pathology: other (Femoral head) Condition: stable Disposition: PACU Indications for Procedure: After failure of conservative treatment we discussed the surgical and nonsurgical treatment options at length. Patient wishes to proceed with a total hip arthroplasty with a direct anterior approach. Complications specific to this procedure were discussed at length, including but not limited to infection, leg length discrepancy, dislocation, and nerve injury. Patient is aware of all these complications and informed consent was obtained Operative Findings: The operative findings are consistent with severe osteoarthritis of the right hip Description of Procedure: Patient was seen and evaluated in the preoperative area, consent was reviewed, and the surgical site was marked with a skin marker. Patient was then brought to the operating room and given prophylactic antibiotics intravenously. 1 g of Tranexamic acid was also given. A spinal anesthetic was administered by the anesthesia department. The patient was then placed on the [place] table with the bony prominences well-padded. The hip area was then prepped and draped in usual sterile fashion. A universal timeout was then performed, which confirmed the patient's name, surgical site, ALLERGIES, and procedure being performed. Next the incision site was located at 1 cm distal and 1 cm lateral to the anterior superior iliac spine. The skin and subcutaneous tissues were sharply incised. Incision was carefully dissected down to the fascia overlying the tensor fascia homar muscle. This fascia was then incised in line with the incision. Next, using blunt finger dissection, the tensor fascia homar muscle was dissected off its investing fascia. The muscle was then carefully retracted laterally with a cobra retractor over the lateral neck of the femur. Next, the circumflex vessels were identified and cauterized using the AquaMantis device. The anterior hip capsule was then exposed. The capsule was then opened and an inverted T fashion. Cobra retractors were then placed intracapsularly. The proximal femur was then visualized. The femoral neck was then osteotomized appropriate level above the lesser trochanter. Small amount of traction was placed with the [place] table. A small wedge of bone was then removed from the remaining femoral head. Next, using a corkscrew femoral head was easily removed from the acetabulum. On gross visual inspection, the femoral head had complete loss of articular cartilage in mu ltiple periarticular osteophytes. Attention was then turned to the acetabulum. the acetabulum was exposed and any remaining labrum was excised. Sequential reaming of the acetabulum was performed using fluoroscopic guidance. When the appropriate size was reached, a trial was then placed. The position and fit of the trial was checked with fluoroscopy. The trial was then removed. Then, using fluoroscopic guidance, the final implant was impacted at 20 of anteversion and 40 of abduction, and fully seated in the acetabulum. 2 screws were then placed in the acetabulum. Again fluoroscopy was used to check position of the screws. Next, the liner was then impacted, with a 20 elevated liner located in the anterior superior quadrant. Component locking was confirmed. Attention was then directed to the femur. With the aid of the [place] table, the femur was externally rotated to approximately 130, extended, and abducted under the opposite leg. A side hook was then placed under the proximal femur, and the side hook elevator was used to elevate the proximal femur. Retractors were then placed. A capsular release was performed, as well as a release of the conjoined tendon, which afforded excellent visualization of the proximal femur. Next, a box osteotome was used to lateralize the proximal femur. A hand worker was then used to locate the femoral canal. Sequential broaching was then performed with appropriate size which afforded excellent fixation in the proximal femur. A trial was then placed with appropriate head and neck, and the hip was gently reduced with the aid of the [place] table. Fluoroscopy was then used to check position of the components, as well as to ensure equal leg lengths. The hip was then gently dislocated and the trials were then removed. Final implants were then impacted and the hip was again reduced. Final fluoroscopic x-rays confirmed that the components were in anatomic position, as well as equal leg lengths. The hip was also taken through range of motion, and found to be stable. The hip was then copiously irrigated with antibiotic solution with pulsatile lavage. The hip was then irrigated with Irrisept solution. The soft tissues were then injected with a ropivacaine solution, which consisted of 246.25 mg of ropivacaine, 0.5 mg of epinephrine, 30 mg of Toradol, 80 g of clonidine, and 48.45 mL of sterile water, for a total of 100 mL of fluid injected. A second dose of 1 g of Tranexamic acid was also given. the fascia was then closed with 2-0 strata fix suture. The subcutaneous tissue was closed with 3-0 Vicryl. The subcuticular tissue was closed with 3-0 strata fix suture. The skin was then closed with Dermabond glue and a sterile silver dressing. The patient was then transferred to the recovery room in stable co ndition. The senior agricultural assistant TAMERA Steen was required due to the complexity of surgery, and the need for skilled assistant professor surgical technology for positioning, draping, exposure, retraction, and closure of the wound.
[2019-01-25 08:54] VITALS: RESP 16
--- NOTE | 2019-01-25 09:12 | XR ---
Limited right hip HISTORY: Status post right hip arthroplasty Single frontal view of the right. Patient is status post right hip arthroplasty. There is anatomic alignment. Lucency in the soft tissu es compatible with postop state. IMPRESSION: Orthopedic follow-up.
[2019-01-25] MEDS ORDERED: LACTATED RINGERS 1,000 ML IV ONE (09:14)
--- NOTE | 2019-01-25 09:16 | FL ---
Fluoroscopy HISTORY: Right hip arthroplasty 47 seconds fluoroscopy time supplied to the referring clinician. 2 intraoperative C-arm images docum ent the procedure. See dictated report from orthopedic surgery.
--- NOTE | 2019-01-25 09:16 | XR ---
Limited right hip HISTORY: Hip arthroplasty 2 intraoperative C-arm images document the procedure.
[2019-01-25] MEDS: SODIUM CHLORIDE 0.9% 1,000 ML IV SCH ×2 (13:50→20:26)
[2019-01-25] MEDS: HYDROcodone/APAP 5-325MG 1 EACH TAB PO PRN ×2 (15:38→21:51)
[2019-01-25 16:45] LABS: Glucose,Whole Blood 160 mg/dL (75-99)
[2019-01-25 20:24] LABS: Glucose,Whole Blood 240 mg/dL (75-99)
[2019-01-25] MEDS: ASPIRIN 325 MG TAB PO SCH (20:24)
[2019-01-25] MEDS: metFORMIN 500 MG TAB PO SCH (20:25)
[2019-01-25] MEDS: VENLAFAXINE HCL ER 150 MG CAP PO SCH (20:25)
[2019-01-25] MEDS: METOPROLOL TARTRATE 25 MG TAB PO SCH (20:25)
[2019-01-25] MEDS ORDERED: SENNOSIDES-DOCUSATE SODIUM 1 EACH TAB PO SCH (21:00)
[2019-01-25] MEDS ORDERED: ATORVASTATIN 10 MG TAB PO SCH (21:00)
[2019-01-26] MEDS: LACTATED RINGERS 1,000 ML IV SCH (00:26)
[2019-01-26] MEDS: HYDROcodone/APAP 5-325MG 1 EACH TAB PO PRN ×2 (04:08→10:03)
[2019-01-26 07:03] LABS: Glucose,Whole Blood 162 mg/dL (75-99)
[2019-01-26 07:34] LABS: Basophils # (A) 0.1 k/uL (0-0.2); Basophils % (A) 1 %; Eosinophils # (A) 0.1 k/uL (0-0.7); Eosinophils % (A) 1 %; HGB 10.5 gm/dL (11.4-16.0); Lymphocytes # (A) 1.8 k/uL (1.0-4.8); Lymphocytes % (A) 20 %; MCHC 31.8 g/dL (31.0-37.0); MCV 94.2 fL (80.0-100.0); Mean Platelet Volume 6.7; Monocytes # (A) 0.8 k/uL (0-1.0); Monocytes % (A) 9 %; Neutrophils # (A) 6.2 k/uL (1.3-7.7); Neutrophils % (A) 68 %; Platelet Count 254 k/uL (150-450); RBC 3.51 m/uL (3.80-5.40); RDW 13.9 % (11.5-15.5); WBC 9.1 k/uL (3.8-10.6)
[2019-01-26 07:41] VITALS: BP 101/64; PULSE 108; TEMP 97.9
[2019-01-26] MEDS: metFORMIN 500 MG TAB PO SCH (07:44)
[2019-01-26] MEDS: ASPIRIN 325 MG TAB PO SCH (07:44)
[2019-01-26] MEDS: METOPROLOL TARTRATE 25 MG TAB PO SCH (07:45)
[2019-01-26] MEDS: VENLAFAXINE HCL ER 150 MG CAP PO SCH (07:45)
--- NOTE | 2019-01-26 08:40 | P.DS ---
Providers Date of admission: 01/25/19 05:34 Expected date of discharge: 01/26/19 Attending physician: Peterson Dejesus Consults: 01/25/19 06:57 Consult Physician Routine Consulting Provider: Balta Stewart Consult Reason/Comments: medical management Do you want consulting provider notified?: Yes Primary care physician: Oanh Lan - Discharge Diagnosis(es) (1) Osteoarthritis of right hip Current Visit: Yes Status: Acute (2) Status post total hip replacement, right Current Visit: Yes Status: Acute Hospital Course: This is a 53-year-old female with known history of degenerative arthritis of the right hip. The patient presents for evaluation. After discussion and consideration patient elects to proceed with total hip arthroplasty. The patient is seen preoperatively by Dr. Dejesus and medically cleared for surgery by their primary care physician. Patient is admitted to [facility] on 01/25/2019 for total hip arthroplasty. The procedures performed without complication or sequelae. The patient is doing well postoperatively. Labs and vital signs are stable on day of discharge. On day of discharge patient's hip incision is healing well. There is minimal erythema. There is no drainage noted at this time. There is minimal soft tissue swelling to the hip and thigh. Patient has full foot and ankle motion without difficulty or pain. Calf is soft and nontender to palpation. Neurovascular status to the right lower extremity is intact. Patient is discharged home in good condition. Opioid start talking form is reviewed and signed at patient bedside. Please see med rec for accurate list of home medications. Plan - Discharge Summary Discharge Rx Participant: Yes New Discharge Prescriptions: New Aspirin 325 mg PO BID #60 tab HYDROcodone/APAP 5-325MG [Rena Lara 5-325] 1 - 2 tab PO Q6HR PRN #56 tab PRN Reason: Pain Sennosides [Senokot] 1 tab PO BID #60 tablet No Action Metoprolol Tartrate [Lopressor] 25 mg PO BID metFORMIN HCL [Glucophage] 1,000 mg PO BID Albuterol Sulfate [Proair Hfa] 2 puff INHALATION RT-Q4H PRN PRN Reason: Shortness Of Breath Simvastatin 20 mg PO HS Cetirizine HCl [Zyrtec] 10 mg PO DAILY Venlafaxine HCl [Effexor XR] 150 mg PO BID Lisinopril [Zestril] 40 mg PO DAILY Methotrexate Sodium [Methotrexate] 12.5 mg PO ADDISON Folic Acid 1 mg PO DAILY Aspirin 81 mg PO DAILY Discharge Medication List Albuterol Sulfate [Proair Hfa] 2 puff INHALATION RT-Q4H PRN 07/20/13 [History] Metoprolol Tartrate [Lopressor] 25 mg PO BID 07/20/13 [History] Simvastatin 20 mg PO HS 07/20/13 [History] metFORMIN HCL [Glucophage] 1,000 mg PO BID 07/20/13 [History] Cetirizine HCl [Zyrtec] 10 mg PO DAILY 10/29/17 [History] Venlafaxine HCl [Effexor XR] 150 mg PO BID 10/29/17 [History] Lisinopril [Zestril] 40 mg PO DAILY 11/09/17 [History] Aspirin 81 mg PO DAILY 01/20/19 [History] Folic Acid 1 mg PO DAILY 01/20/19 [History] Methotrexate Sodium [Methotrexate] 12.5 mg PO ADDISON 01/20/19 [History] Aspirin 325 mg PO BID #60 tab 01/26/19 [Rx] HYDROcodone/APAP 5-325MG [Rena Lara 5-325] 1 - 2 tab PO Q6HR PRN #56 tab 01/26/19 [Rx] Sennosides [Senokot] 1 tab PO BID #60 tablet 01/26/19 [Rx] Follow up Appointment(s)/Referral(s): Peterson Dejesus DO [Doctor of Osteopathic Medicine] - 2 Weeks Activity/Diet/Wound Care/Special Instructions: Weightbearing as tolerated with walker. Leave dressing intact. Dressing may be removed by home care nurse or by patient in 10 days. May shower with dressing on. Recommend use of compression stockings daily for at least 2 weeks during the day to help prevent swelling and blood clots. May remove at night before sleeping. Please follow-up with [facility] in 2 weeks and call with any questions or concerns, . Discharge Disposition: HOME WITH HOME HEALTH SERVICES
[2019-01-26] MEDS ORDERED: LISINOPRIL 20 MG TAB PO SCH (09:00)
[2019-01-26] MEDS ORDERED: FOLIC ACID 1 MG TAB PO SCH (09:00)
[2019-01-26] MEDS ORDERED: MELOXICAM 7.5 MG TAB PO SCH (09:00)
[2019-01-26] MEDS ORDERED: LORATADINE 10 MG TAB PO SCH (09:00)
== END 2019-01-26 11:12 | disposition home health service (06) | DRG 470 ==
LOC: 2ORMAIN 05:34 → 4SSUR 12:18
PROVIDERS: ADMIT Orthopaedic Surgery; ATTEND Orthopaedic Surgery
PROC: 0SR906A Replacement of Right Hip Joint with Oxidized Zirconium on Polyethylene Synthetic Substitute, Uncemented, Open Approach (ICD-10-PCS; principal; 2019-01-25 07:00)
DX: M16.11 Unilateral primary osteoarthritis, right hip (principal); M31.6 Other giant cell arteritis; I10 Essential (primary) hypertension; E11.9 Type 2 diabetes mellitus without complications; E78.5 Hyperlipidemia, unspecified; J45.909 Unspecified asthma, uncomplicated; Z87.891 Personal history of nicotine dependence; Z96.642 Presence of left artificial hip joint; Z79.84 Long term (current) use of oral hypoglycemic drugs; Z79.82 Long term (current) use of aspirin; Z79.899 Other long term (current) drug therapy; Z82.49 Family history of ischemic heart disease and other diseases of the circulatory system; Z83.3 Family history of diabetes mellitus
CPT/HCPCS: 36415; 73501; 84132; 85025; 86850; 86891; 86900; 86901; 88300

== ENCOUNTER → 2020-03-05 | Outpatient (CLI) | payer OTHER ==
[2020-03-05 14:30] VITALS: BP 133/85; PULSE 65; TEMP 98.2; BMI 40.1
--- NOTE | 2020-03-05 14:43 | P.HPBAR ---
Bariatric H&P - History & Physicial H&P Date: 03/05/20 History & Physicial: Visit/CC: Patient initial contact: Initial weight: Initial weight in pounds: Height: 5 ft 4.25 in Initial BMI: Last weight: Current weight: 107.048 kg Current weight in pounds: Current BMI: [place] body weight (based on NIH guidelines): Excess body weight loss: The patient is a 54 year-old F who presents for Bariatric Assessment. Patient resents today for sleeve gastrectomy. Surgical consultation. She weighs 107 kg. Her BMI is 40. Patient has had lifetime problems obesity. Past Medical History Past Medical History: Diabetes Mellitus, Hyperlipidemia, Hypertension Additional Past Medical History / Comment(s): Arthritis, Carpal tunnel syndrome,basal arthritis History of Any Multi-Drug Resistant Organisms: None Reported Past Surgical History: Tonsillectomy, Uterine Ablation Additional Past Surgical History / Comment(s): BILATERAL BREAST INMPLANTS 1995 Past Anesthesia/Blood Transfusion Reactions: No Reported Reaction Additional Past Anesthesia/Blood Transfusion Reaction / Comm: HARD TO WAKE UP A FTER IMPLANTS. Past Psychological History: No Psychological Hx Reported Past Alcohol Use History: Occasional Additional Past Alcohol Use History / Comment(s): SMOKED 15 YEARS, 2 PPD, QUIT 2010; OCC USES NICORETTE GUM Past Drug Use History: None Reported - Past Family History Mother Family Medical History: Diabetes Mellitus, Hypertension, Myocardial Infarction ([place]) Surgical - Exam - Eyes PERRL - ENT normal pinna - Neck no masses - Respiratory normal expansion - Cardiovascular Rhythm: regular - Abdomen Abdomen: soft, non tender Bariatric Assessment & Plan Plan: Morbid obesity, BMI 40. Patient presents for EGD. She'll follow-up in the clinic office and has been performed. Bariatric Checklist Checklist: Plan: Checklist: EGD: 1. Hiatal hernia: 2. H. Pylori: HgbA1c: Vitamin D: Smoking: Former smoker Primary care physician referral: Psychiatry clearance: Cardiology clearance: Sleep study: Diet journal: VTE risk score: VTE risk level: Rehab needs at discharge:
== END | disposition home or self-care (01) ==
LOC: BARWHC3 13:05
PROVIDERS: ATTEND Surgery
DX: E66.01 Morbid (severe) obesity due to excess calories (principal); Z68.41 Body mass index [BMI] 40.0-44.9, adult
CPT/HCPCS: 99211

== ENCOUNTER → 2020-03-12 | Outpatient (CLI) | payer OTHER ==
[2020-03-12 09:19] VITALS: BMI 40.1
== END | disposition home or self-care (01) ==
LOC: BARWHC3 08:40
PROVIDERS: ATTEND Surgery
DX: E66.01 Morbid (severe) obesity due to excess calories (principal); Z68.41 Body mass index [BMI] 40.0-44.9, adult; Z71.3 Dietary counseling and surveillance
CPT/HCPCS: 97804

== ENCOUNTER 2020-04-06 06:59 | Day surgery (SDC) | payer OTHER ==
[2020-04-03 16:09] VITALS: BMI 40.3
[~2020-04-06 06:59] MED LIST changes: -ACETAMINOPHEN TAB 500 MG TAB PO ONE; -GABAPENTIN 300 MG CAP PO ONE; +LACTATED RINGERS 1,000 ML IV SCH; -MELOXICAM 7.5 MG TAB PO ONE; -TRANEXAMIC ACID 1,000 MG in SODIUM CHLORIDE 0.9% 100 ML IVPB ONE
[2020-04-06] MEDS ORDERED: LIDOCAINE 1% (10MG/ML) FOR IV START INTRADERMA ONE (07:25)
[2020-04-06 07:41] VITALS: TEMP 98.1
[2020-04-06 07:43] LABS: Glucose,Whole Blood 137 mg/dL (75-99)
[2020-04-06] MEDS ORDERED: PROPOFOL 10 MG/ML 20 ML VIAL IV ONE (08:02)
[2020-04-06] MEDS ORDERED: LIDOCAINE 1% INJ 10MG/ML (20 ML MDV) ONE (08:02)
--- NOTE | 2020-04-06 08:13 | P.GSHP ---
History of Present Illness H&P Date: 04/06/20 Chief Complaint: Morbid obesity, GERD This a 44-year-old female who presents today for EGD. Patient is undergoing workup for sleeve gastrectomy. She is morbidly obese with BMI 41. She's had some GERD gastritis issues. Past Medical History Past Medical History: Diabetes Mellitus, Hyperlipidemia, Hypertension Additional Past Medical History / Comment(s): Arthritis, Carpal tunnel syndrome,DDD History of Any Multi-Drug Resistant Organisms: None Reported Past Surgical History: Breast Surgery, Joint Replacement, Orthopedic Surgery, Tonsillectomy, Uterine Ablation Additional Past Surgical History / Comment(s): BILATERAL BREAST IMPLANTS 1996 bilateral hip replacement, benign tumor removed in groin at age 8, right foot surgery, Past Anesthesia/Blood Transfusion Reactions: No Reported Reaction Additional Past Anesthesia/Blood Transfusion Reaction / Comment(s): HARD TO WAKE UP AFTER IMPLANTS. Smoking Status: Former smoker, Vaper - Past Family History Mother Family Medical History: Diabetes Mellitus, Hypertension, Myocardial Infarction ([place]) Medications and Allergies Home Medications Medication Instructions Recorded Confirmed Type Albuterol Sulfate [Proair Hfa] 2 puff INHALATION RT-Q4H PRN 07/20/13 04/06/20 History Metoprolol Tartrate [Lopressor] 25 mg PO BID 07/20/13 04/06/20 History Simvastatin 20 mg PO HS 07/20/13 04/06/20 History metFORMIN HCL [Glucophage] 1,000 mg PO BID 07/20/13 04/06/20 History Cetirizine HCl [Zyrtec] 10 mg PO DAILY 10/29/17 04/06/20 History lisinopriL [Zestril] 40 mg PO DAILY 11/09/17 04/06/20 History Folic Acid 1 mg PO DAILY 01/20/19 04/06/20 History metHOTREXate sodium [Methotrexate] 12.5 mg PO ADDISON 01/20/19 04/06/20 History Aspirin [Adult Low Dose Aspirin EC] 81 mg PO DAILY 03/12/20 04/06/20 History Diclofenac Sodium [Voltaren] 75 mg PO BID 03/12/20 04/06/20 History sitaGLIPtin [Januvia] 1 tab PO DAILY 03/12/20 04/06/20 History Varenicline [Chantix Continuing 1 mg PO BID 04/03/20 04/06/20 History Pack] Allergies Allergy/AdvReac Type Severity Reaction Status Date / Time No Known Allergies Allergy Verified 04/06/20 07:19 Surgical - Exam Vital Signs Temp Pulse Resp BP Pulse Ox 98.1 F 81 16 162/80 98 04/06/20 07:25 04/06/20 07:25 04/06/20 07:25 04/06/20 07:25 04/06/20 07:25 - General well developed, well nourished, no distress - Eyes PERRL - ENT normal pinna - Neck no masses - Respiratory normal expansion - Cardiovascular Rhythm: regular - Abdomen Abdomen: soft Results - Labs Abnormal Lab Results - Last 24 Hours (Table) 04/06/20 Range/Units 07:33 POC Glucose (mg/dL) 137 H (75-99) mg/dL Assessment and Plan Assessment: Morbid obesity, BMI 41 GERD We'll perform EGD
--- NOTE | 2020-04-06 08:16 | P.OP ---
Date of Procedure: 04/06/20 Preoperative Diagnosis: Morbid obesity, BMI 41 GERD Postoperative Diagnosis: Antral gastritis Morbid obesity Procedure(s) Performed: EGD Anesthesia: MAC Surgeon: Harry Franco Pathology: other (Antrum) Condition: stable Description of Procedure: The patient's placed on the endoscopy table in the lateral position. She received IV sedation. The gastroscope oropharynx passed in the esophagus into the stomach. Scope was then placed through the pylorus. First and second portion of the duodenum appeared normal. Scope summer back the antrum and this was mildly inflamed. A biopsies performed. The scope was unretroflexed and remainder of the stomach appeared normal. The GE junction was at 40 cm. There was no evidence of a hiatal hernia. The distal esophagus. Normal proximal esophagus appeared normal . The scope was then withdrawn for patient.
[2020-04-06 08:33] VITALS: BP 136/83; PULSE 72; RESP 16
== END 2020-04-06 08:50 | disposition home or self-care (01) ==
LOC: ORWHC2ENDO 06:59
PROVIDERS: ATTEND Surgery
DX: K29.70 Gastritis, unspecified, without bleeding (principal); K31.9 Disease of stomach and duodenum, unspecified; K21.9 Gastro-esophageal reflux disease without esophagitis; E66.01 Morbid (severe) obesity due to excess calories; E11.9 Type 2 diabetes mellitus without complications; E78.5 Hyperlipidemia, unspecified; I10 Essential (primary) hypertension; M19.90 Unspecified osteoarthritis, unspecified site; G56.00 Carpal tunnel syndrome, unspecified upper limb; M51.9 Unspecified thoracic, thoracolumbar and lumbosacral intervertebral disc disorder; J45.909 Unspecified asthma, uncomplicated; Z68.41 Body mass index [BMI] 40.0-44.9, adult; Z98.890 Other specified postprocedural states; Z96.643 Presence of artificial hip joint, bilateral; Z90.89 Acquired absence of other organs; Z98.82 Breast implant status; Z87.898 Personal history of other specified conditions; Z87.891 Personal history of nicotine dependence; Z79.899 Other long term (current) drug therapy; Z79.84 Long term (current) use of oral hypoglycemic drugs; Z79.82 Long term (current) use of aspirin; Z79.1 Long term (current) use of non-steroidal anti-inflammatories (NSAID); Z83.3 Family history of diabetes mellitus; Z82.49 Family history of ischemic heart disease and other diseases of the circulatory system
CPT/HCPCS: 88305; 43239; J2001; J2704

== ENCOUNTER → 2020-05-07 | Outpatient (CLI) | payer OTHER ==
--- NOTE | 2020-05-07 15:46 | P.HPBAR ---
Bariatric H&P - History & Physicial H&P Date: 05/07/20 History & Physicial: Visit/CC: presurgical visit Patient initial contact: Initial weight: Initial weight in pounds: Height: 5 ft 4.25 in Initial BMI: Last weight: Current weight: 105.233 kg Current weight in pounds: 232.00 Current BMI: 39.5 [place] body weight (based on NIH guidelines): 54.998 kg Excess body weight loss: The patient is a 54 year-old F who presents for Bariatric Assessment. Patient presents today for presurgical consultation. She is morbidly obese her BMI 39. She's had lifetime problems obesity. Past Medical History Past Medical History: Diabetes Mellitus, Hyperlipidemia, Hypertension Additional Past Medical History / Comment(s): Arthritis, Carpal tunnel syndrome,basal arthritis History of Any Multi-Drug Resistant Organisms: None Reported Past Surgical History: Joint Replacement, Tonsillectomy, Uterine Ablation Additional Past Surgical History / Comment(s): BILATERAL BREAST INMPLANTS 1995 bilateral hip replacementbenign tumor removed in groin at age 8 right foot surgery DDD Past Anesthesia/Blood Transfusion Reactions: No Reported Reaction Additional Past Anesthesia/Blood Transfusion Reaction / Comm: HARD TO WAKE UP AFTER IMPLANTS. Past Psychological History: No Psychological Hx Reported Smoking Status: Former smoker Past Alcohol Use History: Occasional Additional Past Alcohol Use History / Comment(s): SMOKED 15 YEARS, 2 PPD, QUIT 2010; OCC USES NICORETTE GUM Past Drug Use History: None Reported - Past Family History Mother Family Medical History: Diabetes Mellitus, Hypertension, Myocardial Infarction ([place]) Surgical - Exam Vital Signs Temp Pulse Resp BP 98 F 91 18 135/85 05/07/20 12:59 05/07/20 12:59 05/07/20 12:59 05/07/20 12:59 - General well developed, well nourished, no distress - Eyes PERRL - ENT normal pinna, normal nares - Neck no masses - Respiratory normal expansion - Cardiovascular Rhythm: regular - Abdomen Abdomen: soft, non tender Bariatric Assessment & Plan Plan: Morbid obesity. Patient will undergo workup for sleeve gastric. She'll need a EGD performed. She'll follow-up in 4 weeks. Bariatric Checklist Checklist: Plan: Checklist: EGD: 1. Hiatal hernia: 2. H. Pylori: HgbA1c: Vitamin D: Smoking: Former smoker Primary care physician referral: OLIVIA Crane ([facility]) Psychiatry clearance: Cardiology clearance: Sleep study: Diet journal: VTE risk score: VTE risk level: Rehab needs at discharge:
== END | disposition home or self-care (01) ==
CPT/HCPCS: 99211

== ENCOUNTER → 2020-05-07 | Outpatient (CLI) | payer OTHER ==
[2020-05-07 14:53] LABS: Basophils # (A) 0.1 k/uL (0-0.2); Basophils % (A) 1 %; Eosinophils # (A) 0.3 k/uL (0-0.7); Eosinophils % (A) 4 %; HCT 38.4 % (34.0-46.0); HGB 12.7 gm/dL (11.4-16.0); Lymphocytes % (A) 26 %; MCHC 33.1 g/dL (31.0-37.0); MCV 90.7 fL (80.0-100.0); Mean Platelet Volume 7.2; Monocytes # (A) 0.7 k/uL (0-1.0); Monocytes % (A) 8 %; Neutrophils # (A) 4.6 k/uL (1.3-7.7); Neutrophils % (A) 59 %; Platelet Count 264 k/uL (150-450); RBC 4.23 m/uL (3.80-5.40); RDW 14.8 % (11.5-15.5); WBC 7.9 k/uL (3.8-10.6)
[2020-05-07 15:03] LABS: ALT 30 U/L (4-34); AST 24 U/L (14-36); African American GFR (CKD) >90 (>60 ml/min/1.73 sqM); Albumin 4.5 g/dL (3.5-5.0); Alkaline Phosphatase 96 U/L (38-126); Anion Gap 7 mmol/L; Blood Urea Nitrogen 15 mg/dL (7-17); Calcium 9.9 mg/dL (8.4-10.2); Carbon Dioxide 32 mmol/L (22-30); Chloride 101 mmol/L (98-107); Glucose 160 mg/dL (74-99); Non-African American GFR(CKD) >90 (>60 ml/min/1.73 sqM); Potassium 4.9 mmol/L (3.5-5.1); Sodium 140 mmol/L (137-145); Total Bilirubin 0.2 mg/dL (0.2-1.3); Total Protein 7.3 g/dL (6.3-8.2)
== END | disposition home or self-care (01) ==
LOC: LABPAT 13:43
PROVIDERS: ATTEND Surgery
DX: Z01.818 Encounter for other preprocedural examination (principal)
CPT/HCPCS: 36415; 80053; 85025; 93005

== ENCOUNTER 2020-05-28 07:40 | Inpatient (IN) | payer OTHER ==
[~2020-05-28 07:40] MED LIST changes: +DEXAMETHASONE SOD PHOSPHATE 4 MG/ML 1 ML VIAL IV ONE; +ENOXAPARIN 40 MG/0.4 ML SYRINGE SQ PRN; -LACTATED RINGERS 1,000 ML IV SCH; +MIDAZOLAM 2 MG/2 ML VIAL IV PRN; +ONDANSETRON 4 MG/2 ML VIAL IVP ONE; +fentaNYL (PF) 50 MCG/ML 2 ML AMP IV PRN
[2020-05-28] MEDS: LACTATED RINGERS 1,000 ML IV SCH (09:45)
[2020-05-28 10:00] LABS: Glucose,Whole Blood 157 mg/dL (75-99)
--- NOTE | 2020-05-28 10:15 | P.GSHP ---
History of Present Illness H&P Date: 05/28/20 Chief Complaint: Obesity, BMI 39 This is a 54-year-old female presents today for laparoscopic sleeve gastric appeared patient's echo minutes of morbid obesity. She has ovaries with deformities. Patient reversed surgery including gastric perforation bleeding and scarring. Past Medical History Past Medical History: Diabetes Mellitus, Hyperlipidemia, Hypertension, Osteoarthritis (OA) Additional Past Medical History / Comment(s): Carpal tunnel syndrome, DDD History of Any Multi-Drug Resistant Organisms: None Reported Past Surgical History: Breast Surgery, Joint Replacement, Orthopedic Surgery, Tonsillectomy, Uterine Ablation Additional Past Surgical History / Comment(s): , BILATERAL BREAST INMPLANTS 1995 bilateral hip replacement, benign tumor removed in groin at age 8 right foot surgery, EGD Past Anesthesia/Blood Transfusion Reactions: No Reported Reaction Additional Past Anesthesia/Blood Transfusion Reaction / Comment(s): HARD TO WAKE UP AFTER IMPLANTS. Smoking Status: Former smoker - Past Family History Mother Family Medical History: Diabetes Mellitus, Hypertension, Myocardial Infarction ([place]) Medications and Allergies Home Medications Medication Instructions Recorded Confirmed Type Albuterol Sulfate [Proair Hfa] 2 puff INHALATION RT-Q4H PRN 07/20/13 05/22/20 History Metoprolol Tartrate [Lopressor] 25 mg PO BID 07/20/13 05/22/20 History Simvastatin 20 mg PO HS 07/20/13 05/22/20 History metFORMIN HCL [Glucophage] 1,000 mg PO BID 07/20/13 05/22/20 History Cetirizine HCl [Zyrtec] 10 mg PO DAILY 10/29/17 05/22/20 History lisinopriL [Zestril] 40 mg PO DAILY 11/09/17 05/22/20 History Folic Acid 1 mg PO DAILY 01/20/19 05/22/20 History metHOTREXate sodium [Methotrexate] 12.5 mg PO ADDISON 01/20/19 05/28/20 History Aspirin [Adult Low Dose Aspirin EC] 81 mg PO DAILY 03/12/20 05/28/20 History Diclofenac Sodium [Voltaren] 75 mg PO BID 03/12/20 05/28/20 History sitaGLIPtin [Januvia] 100 mg PO DAILY 03/12/20 05/22/20 History Allergies Allergy/AdvReac Type Severity Reaction Status Date / Time No Known Allergies Allergy Verified 05/28/20 09:26 Surgical - Exam Vital Signs Temp Pulse Resp BP Pulse Ox 97.6 F 71 18 146/72 98 05/28/20 09:34 05/28/20 09:34 05/28/20 09:34 05/28/20 09:34 05/28/20 09:34 bmi 39 - General well developed, well nourished, no distress - Eyes PERRL - ENT normal pinna - Neck no masses - Respiratory normal expansion - Cardiovascular Rhythm: regular - Abdomen Abdomen: soft, non tender Results - Labs Abnormal Lab Results - Last 24 Hours (Table) 05/28/20 Range/Units 09:58 POC Glucose (mg/dL) 157 H (75-99) mg/dL Assessment and Plan Assessment: Obesity. We'll perform sleeve gastrectomy.
[2020-05-28] MEDS ORDERED: fentaNYL (PF) 50 MCG/ML 2 ML AMP IVP ONE (10:46)
[2020-05-28] MEDS ORDERED: MIDAZOLAM 2 MG/2 ML VIAL IVP ONE (10:46)
[2020-05-28] MEDS ORDERED: BUPIVACAINE (PF) 0.25% 30 ML VIAL SQ ONE (12:06)
[2020-05-28] MEDS ORDERED: LACTATED RINGERS 1,000 ML IV ONE (12:16)
--- NOTE | 2020-05-28 12:39 | P.ANPRN ---
Procedure Note - Anesthesia - Nerve Block Performed Bilateral Transversus Abdominis Single Time Out Performed: Yes Date of Procedure: 05/28/20 Procedure Start Time: 10:45 Procedure Stop Time: 10:50 Location of Patient: PreOp Indication: Acute Post-Operative Pain, Analgesia, Dx/Pain Location, Requested by Surgeon Sedation Type: Sedate with meaningful contact maintained Preparation: Sterile Prep Position: Supine Needle Types: Pajunk Needle Gauge: 21 Ultrasound used to visualize needle placement: Yes Ultrasound used to observe medication spread: Yes Injectate: 0.5% Ropivacaine (see comment for volume) Blood Aspirated: No Pain Paresthesia on Injection Noted: No Resistance on Injection: Normal Image Stored and Saved: Yes Events: Uneventful and Well Tolerated
[2020-05-28] MEDS ORDERED: diphenhydrAMINE 50 MG/ML 1 ML VIAL IVP PRN (12:49)
[2020-05-28] MEDS ORDERED: NALOXONE 0.4 MG/ML 1 ML VIAL IV PRN (12:49)
[2020-05-28] MEDS ORDERED: ONDANSETRON 4 MG/2 ML VIAL IVP PRN (12:49)
[2020-05-28] MEDS ORDERED: HYDROmorphone 1 MG/ML 1 ML SYRINGE IVP PRN (12:49)
[2020-05-28] MEDS ORDERED: SIMETHICONE 40 MG/0.6 ML DROPS 2,000 MG/30 ML BOTTLE PO PRN (12:49)
--- NOTE | 2020-05-28 12:49 | P.OP ---
Date of Procedure: 05/28/20 Preoperative Diagnosis: Morbid obesity, BMI 39 Postoperative Diagnosis: Morbid obesity, BMI 39 Procedure(s) Performed: Laparoscopic sleeve gastrectomy Anesthesia: MAC Surgeon: Harry Franco Estimated Blood Loss (ml): 10 Pathology: other Condition: stable Disposition: PACU Description of Procedure: The patient was placed on the operating room table in the supine position. She received general anesthesia and then was placed in dorsal lithotomy position. Her abdomen was prepped and draped in sterile fashion. The skin incision sites were anesthetized 1% local Xylocaine. And then the skin was incised with an 11 blade in the left lateral position. Using a blade less trocar under direct visualization the peritoneal cavity was entered. The abdomen was insufflated and then a 5 mm laparoscope was placed into the peritoneal cavity. A 5 mm trocar was placed in the right epigastric, and right lateral position. A 15 mm trocar was placed in the supra-umbilical position and another 5 mm trocar was placed in the left lateral position. The left lateral lobe of the liver was retracted. The stomach was visualized. The greater curvature of the stomach was then dissected using the Harmonic scissors. The dissection occurred approximately 5 cm from the pylorus to the level of the left esetfany. There was no hiatal hernia seen. At this point a 40-English bougie dilator was placed the oropharynx and passed into the esophagus and into the stomach by the BURLAP ROLL COVERER. The sleeve gastrectomy was performed by using the powered echelon stapler with a seam guard buttress material. Sequential firings of the stapler were performed. The gastric remnant was then brought out through the 15 mm trocar site. The dilator was withdrawn. And a orogastric tube was replaced into the stomach. The stomach was insufflated with 200 mL of methylene blue normal saline. There was no evidence of extravasation. The abdomen was irrigated there is no bleeding seen. The [place]-Gisel device was used to close the 15 mm trocar with 0 Vicryl. Skin was closed with interrupted 3-0 Monocryl sutures once the trochars withdrawn. Dermabond dressing was applied. Patient was sent to recovery in stable condition.
[2020-05-28 13:12] LABS: Glucose,Whole Blood 201 mg/dL (75-99)
[2020-05-28] MEDS: HYDROmorphone 0.5 MG/0.5 ML SYRINGE IVP PRN ×4 (13:36→16:17)
[2020-05-28] MEDS ORDERED: SODIUM CHLORIDE 0.9% 1,000 ML IV ONE ×2 (16:18)
[2020-05-28] MEDS: KETOROLAC 15 MG/ML 1 ML VIAL IVP SCH ×2 (18:21→23:17)
[2020-05-28 19:36] VITALS: RESP 18
[2020-05-28] MEDS: 0.9% NACL WITH KCL 20 MEQ/L 1,000 ML IV SCH ×2 (19:44→21:29)
[2020-05-28] MEDS: ALBUTEROL NEBULIZED 2.5 MG/3 ML INHALATION SCH ×2 (19:52)
[2020-05-28 20:53] LABS: Glucose,Whole Blood 186 mg/dL (75-99)
[2020-05-28] MEDS ORDERED: ATORVASTATIN 10 MG TAB PO SCH (21:00)
[2020-05-28] MEDS: METOPROLOL TARTRATE 25 MG TAB PO SCH (21:29)
[2020-05-28] MEDS: INSULIN ASPART (NovoLOG) 100 UNIT/ML VIAL SQ SCH (21:29)
[2020-05-28] MEDS: HYOSCYAMINE ORAL DROPS 1.875 MG/15 ML BOTTLE PO PRN (21:32)
[2020-05-29] MEDS: LACTATED RINGERS 1,000 ML IV SCH (00:03)
[2020-05-29] MEDS: 0.9% NACL WITH KCL 20 MEQ/L 1,000 ML IV SCH (02:14)
[2020-05-29] MEDS: HYOSCYAMINE ORAL DROPS 1.875 MG/15 ML BOTTLE PO PRN (02:54)
[2020-05-29] MEDS: KETOROLAC 15 MG/ML 1 ML VIAL IVP SCH ×2 (05:21→11:57)
[2020-05-29 07:13] LABS: Glucose,Whole Blood 162 mg/dL (75-99)
[2020-05-29] MEDS ORDERED: SODIUM CHLORIDE 0.9% 1,000 ML IV ONE (07:37)
[2020-05-29] MEDS: INSULIN ASPART (NovoLOG) 100 UNIT/ML VIAL SQ SCH ×2 (07:38→11:57)
[2020-05-29] MEDS: METOPROLOL TARTRATE 25 MG TAB PO SCH (07:39)
[2020-05-29] MEDS: ALBUTEROL NEBULIZED 2.5 MG/3 ML INHALATION SCH ×2 (07:54→11:28)
[2020-05-29 08:01] VITALS: BP 89/59; TEMP 98
[2020-05-29] MEDS ORDERED: ENOXAPARIN 40 MG/0.4 ML SYRINGE SQ SCH (09:00)
[2020-05-29] MEDS ORDERED: PANTOPRAZOLE 40 MG/10 ML VIAL IV SCH (09:00)
[2020-05-29] MEDS ORDERED: LORATADINE 10 MG TAB PO SCH (09:00)
[2020-05-29] MEDS ORDERED: lisinopriL 20 MG TAB PO SCH (09:00)
[2020-05-29] MEDS ORDERED: metFORMIN 500 MG TAB PO SCH (09:00)
[2020-05-29] MEDS ORDERED: ASPIRIN 81 MG PO SCH (09:00)
--- NOTE | 2020-05-29 10:45 | FL ---
SINGLE CONTRAST UPPER GI EXAMINATION: CLINICAL HISTORY: 54-year-old female postoperative bariatric surgery. TECHNIQUE: Single contrast exam performed with 50 ml Isovue-370 contrast. Total fluoroscopy time: 1 minute 36 seconds. Total images: 32. FINDINGS: The patient swallowed oral contrast without difficulty or delay. Esophageal peristalsis and motility are within normal limits. There is prompt passage of contrast from the esophagus into the stomach a nd gradual passage of contrast across the sleeve gastrectomy site as patient ingested more contrast. There is no evidence of contrast extravasation to suggest leak. Adequate passage of contrast into the duodenum. There is trace free air noted below the left hemidiaphragm. IMPRESSION: 1. No evidence of leak or significant obstruction status post sleeve gastrectomy. 2. Trace residual postoperative free air below the left hemidiaphragm.
[2020-05-29 11:35] LABS: African American GFR (CKD) 96.9 (60.0-200.0); Anion Gap 6.7 mmol/L (4.00-12.00); Basophils # (A) 0.01 X 10*3/uL (0.00-0.10); Basophils % (A) 0.1 %; Calcium 9.3 mg/dL (8.7-10.3); Carbon Dioxide 27.3 mmol/L (21.6-31.8); Eosinophils # (A) 0.01 X 10*3/uL (0.04-0.35); Eosinophils % (A) 0.1 %; HCT 31.3 % (37.2-46.3); HGB 9.5 g/dL (12.0-15.0); Lymphocytes # (A) 1.23 X 10*3/uL (0.90-5.00); MCH 28.6 pg (27.0-32.0); MCHC 30.4 g/dL (32.0-37.0); MCV 94.3 fL (80.0-97.0); Magnesium 2.7 mg/dL (1.5-2.4); Mean Platelet Volume 10.7 fL (9.5-12.2); Monocytes # (A) 0.92 X 10*3/uL (0.20-1.00); Neutrophils # (A) 8.03 X 10*3/uL (1.80-7.70); Neutrophils % (A) 78.5 %; Non-African American GFR(CKD) 83.6 (60.0-200.0); Phosphorus 4.6 mg/dL (2.4-5.1); Platelet Count 250 X 10*3/uL (140-440); Potassium 5.2 mmol/L (3.5-5.5); RBC 3.32 X 10*6/uL (4.10-5.20); RDW 15.1 % (11.5-14.5); WBC 10.23 X 10*3/uL (4.50-10.00)
[2020-05-29 11:44] LABS: Glucose,Whole Blood 121 mg/dL (75-99)
[2020-05-29 11:54] VITALS: PULSE 88
[2020-05-29 12:59] VITALS: BMI 38.6
--- NOTE | 2020-05-29 13:15 | P.DS ---
Providers Date of admission: 05/28/20 08:18 Expected date of discharge: 05/29/20 Attending physician: Harry Franco Consults: 05/28/20 12:49 Consult Physician Routine Consulting Provider: Balta Stewart Consult Reason/Comments: med manage Do you want consulting provider notified?: Yes Primary care physician: Oanh Lan Hospital Course: Discharge diagnosis 1.Morbid obesity, BMI 39 status post laparoscopic sleeve gastrectomy Hospital course This is a 54-year-old female with a known history of morbid obesity. She is status post laparoscopic sleeve gastrectomy. Her upper GI showed no evidence of leak or obstruction. She's tolerating bariatric clear liquid diet. She is ambulating. Her pain is controlled. She denies any nausea or vomiting. She is passing gas. She is afebrile. She is stable for discharge. Please refer to chart for any further details. Physician Medical Delivery Technician note has been reviewed by physician. Signing provider agrees with the documented findings, assessment, and plan of care. Patient Condition at Discharge: Stable Plan - Discharge Summary Discharge Rx Participant: Yes New Discharge Prescriptions: New bisacodyL [Dulcolax] 5 mg PO DAILY PRN #10 tablet. PRN Reason: Constipation Simethicone 40 mg/0.6 ml Drops [Mylicon Drops] 40 mg PO PCHS PRN #30 ml PRN Reason: Gas Omeprazole [PriLOSEC] 40 mg PO DAILY #30 capsule. Ondansetron Odt [Zofran Odt] 4 mg PO Q8HR PRN #9 tab PRN Reason: Nausea HYDROcodone/APAP 5-325MG [[place] 5-325] 1 tab PO Q6HR PRN 2 Days #5 tab PRN Reason: Pain No Action Metoprolol Tartrate [Lopressor] 25 mg PO BID metFORMIN HCL [Glucophage] 1,000 mg PO BID Albuterol Sulfate [Proair Hfa] 2 puff INHALATION RT-Q4H PRN PRN Reason: Shortness Of Breath Simvastatin 20 mg PO HS Cetirizine HCl [Zyrtec] 10 mg PO DAILY lisinopriL [Zestril] 40 mg PO DAILY metHOTREXate sodium [Methotrexate] 12.5 mg PO ADDISON Folic Acid 1 mg PO DAILY Diclofenac Sodium [Voltaren] 75 mg PO BID Aspirin [Adult Low Dose Aspirin EC] 81 mg PO DAILY sitaGLIPtin [Januvia] 100 mg PO DAILY Discharge Medication List Albuterol Sulfate [Proair Hfa] 2 puff INHALATION RT-Q4H PRN 07/20/13 [History] Metoprolol Tartrate [Lopressor] 25 mg PO BID 07/20/13 [History] Simvastatin 20 mg PO HS 07/20/13 [History] metFORMIN HCL [Glucophage] 1,000 mg PO BID 07/20/13 [History] Cetirizine HCl [Zyrtec] 10 mg PO DAILY 10/29/17 [History] lisinopriL [Zestril] 40 mg PO DAILY 11/09/17 [History] Folic Acid 1 mg PO DAILY 01/20/19 [History] metHOTREXate sodium [Methotrexate] 12.5 mg PO ADDISON 01/20/19 [History] Aspirin [Adult Low Dose Aspirin EC] 81 mg PO DAILY 03/12/20 [History] Diclofenac Sodium [Voltaren] 75 mg PO BID 03/12/20 [History] sitaGLIPtin [Januvia] 100 mg PO DAILY 03/12/20 [History] HYDROcodone/APAP 5-325MG [[place] 5-325] 1 tab PO Q6HR PRN 2 Days #5 tab 05/29/20 [Rx] Omeprazole [PriLOSEC] 40 mg PO DAILY #30 capsule. 05/29/20 [Rx] Ondansetron Odt [Zofran Odt] 4 mg PO Q8HR PRN #9 tab 05/29/20 [Rx] Simethicone 40 mg/0.6 ml Drops [Mylicon Drops] 40 mg PO PCHS PRN #30 ml 05/29/20 [Rx] bisacodyL [Dulcolax] 5 mg PO DAILY PRN #10 tablet. 05/29/20 [Rx] [facility] [facility] [place] [place] [facility] Patient Instructions/Handouts: How to Use an Incentive Spirometer (DC), Abdominal Binder (DC), Nutrition after Bariatric Surgery (DC), Laparoscopic S leeve Gastrectomy (DC) Activity/Diet/Wound Care/Special Instructions: Medicine service to complete discharge med rec No driving while taking [place] No lifting over 10 pounds You may shower. No soaking or tub baths for 2 weeks Very light activity until you are reevaluated at your follow up appointment with your surgeon Cut or crush all pills to the size smaller than a tic tac No straws or carbonated beverages Discharge Disposition: HOME SELF-CARE
== END 2020-05-29 14:17 | disposition home or self-care (01) | DRG 621 ==
LOC: 2ORMAIN 08:18 → 4SSUR 18:12
PROVIDERS: ADMIT Surgery; ATTEND Surgery
PROC: 0DB64Z3 Excision of Stomach, Percutaneous Endoscopic Approach, Vertical (ICD-10-PCS; principal; 2020-05-28 10:45)
DX: E66.01 Morbid (severe) obesity due to excess calories (principal); Z68.39 Body mass index [BMI] 39.0-39.9, adult; E11.9 Type 2 diabetes mellitus without complications; I10 Essential (primary) hypertension; E78.5 Hyperlipidemia, unspecified; M19.90 Unspecified osteoarthritis, unspecified site; Z96.643 Presence of artificial hip joint, bilateral; Z87.891 Personal history of nicotine dependence; Z82.49 Family history of ischemic heart disease and other diseases of the circulatory system; Z83.3 Family history of diabetes mellitus; Z79.84 Long term (current) use of oral hypoglycemic drugs; Z79.82 Long term (current) use of aspirin
CPT/HCPCS: 64488; 74240; 80051; 82310; 82565; 83735; 84100; 84520; 85025; 88307; 94640

== ENCOUNTER → 2020-06-01 | Outpatient (CLI) | payer OTHER ==
[2020-06-01 10:46] VITALS: BP 122/81; PULSE 82; TEMP 98.2; BMI 37.8
== END ==
LOC: BARWHC3 09:44
PROVIDERS: ATTEND Surgery
DX: E66.01 Morbid (severe) obesity due to excess calories (principal); Z68.37 Body mass index [BMI] 37.0-37.9, adult; Z98.84 Bariatric surgery status; Z46.51 Encounter for fitting and adjustment of gastric lap band; E11.9 Type 2 diabetes mellitus without complications; E78.5 Hyperlipidemia, unspecified; I10 Essential (primary) hypertension; Z87.891 Personal history of nicotine dependence
CPT/HCPCS: 99211

== ENCOUNTER → 2020-06-04 | Outpatient (CLI) | payer OTHER ==
[2020-06-04 14:36] VITALS: BP 107/72; PULSE 109; RESP 16; TEMP 98.7; BMI 36.4
== END ==
LOC: BARWHC3 13:06
PROVIDERS: ATTEND Surgery
DX: E66.01 Morbid (severe) obesity due to excess calories (principal); Z68.36 Body mass index [BMI] 36.0-36.9, adult; Z98.84 Bariatric surgery status; Z71.3 Dietary counseling and surveillance; E11.9 Type 2 diabetes mellitus without complications; E78.5 Hyperlipidemia, unspecified; I10 Essential (primary) hypertension; M19.90 Unspecified osteoarthritis, unspecified site; Z87.891 Personal history of nicotine dependence
CPT/HCPCS: 97803; 99211

== ENCOUNTER → 2020-07-09 | Outpatient (CLI) | payer OTHER ==
[2020-07-09 14:44] VITALS: BP 122/71; PULSE 89; RESP 18; TEMP 98.3; BMI 34.4
--- NOTE | 2020-07-10 11:32 | P.HPBAR ---
Bariatric H&P - History & Physicial H&P Date: 07/09/20 History & Physicial: Visit/CC: follow up / 2 months out Patient initial contact: Initial weight: 97.069 kg Initial weight in pounds: 214.00 Height: 5 ft 4.25 in Initial BMI: 36.4 Last weight: Current weight: 91.626 kg Current weight in pounds: 202.00 Current BMI: 34.4 [place] body weight (based on NIH guidelines): 54.998 kg Excess body weight loss: 12.9% The patient is a 55 year-old F who presents for Bariatric Assessment. Patient presents today for sleeve gastric her fall. She's had excellent weight loss. She had some mild GERD. Past Medical History Past Medical History: Diabetes Mellitus, Hyperlipidemia, Hypertension, Osteoarthritis (OA) Additional Past Medical History / Comment(s): Carpal tunnel syndrome, DDD History of Any Multi-Drug Resistant Organisms: None Reported Past Surgical History: Bariatric Surgery, Breast Surgery, Joint Replacement, Orthopedic Surgery, Tonsillectomy, Uterine Ablation Additional Past Surgical History / Comment(s): , BILATERAL BREAST INMPLANTS 1995 bilateral hip replacement, benign tumor removed in groin at age 8 right foot surgery, EGD Sleeve gastrectomy 05-28-20 Past Anesthesia/Blood Transfusion Reactions: No Reported Reaction Additional Past Anesthesia/Blood Transfusion Reaction / Comm: HARD TO WAKE UP AFTER IMPLANTS. Past Psychological History: No Psychological Hx Reported Smoking Status: Former smoker Past Alcohol Use History: Occasional Additional Past Alcohol Use History / Comment(s): SMOKED 15 YEARS, 2 PPD, QUIT 2010; OCC USES NICORETTE GUM Past Drug Use History: None Reported - Past Family History Mother Family Medical History: Diabetes Mellitus, Hypertension, Myocardial Infarction ([place]) Surgical - Exam Vital Signs Temp Pulse Resp BP 98.3 F 89 18 122/71 07/09/20 14:38 07/09/20 14:38 07/09/20 14:38 07/09/20 14:38 - General well developed, well nourished, no distress - Eyes PERRL, normal ocular movement - ENT normal pinna - Neck no masses - Respiratory normal expansion - Cardiovascular Rhythm: regular - Abdomen Abdomen: soft, non tender Bariatric Assessment & Plan Plan: Status post sleeve gastrectomy. Patient is doing quite well. Her GERD is minimal only observed. She'll follow-up in 4 weeks. Bariatric Checklist Checklist: Plan: Checklist: EGD: 1. Hiatal hernia: 2. H. Pylori: HgbA1c: Vitamin D: Smoking: Former smoker Primary care physician referral: OLIVIA Crane ([facility]) Psychiatry clearance: Cardiology clearance: Sleep study: Diet journal: VTE risk score: VTE risk level: Rehab needs at discharge:
== END ==
LOC: BARWHC3 13:51
PROVIDERS: ATTEND Surgery
DX: K21.9 Gastro-esophageal reflux disease without esophagitis (principal); Z98.84 Bariatric surgery status; E11.9 Type 2 diabetes mellitus without complications; I10 Essential (primary) hypertension; Z87.891 Personal history of nicotine dependence; M19.90 Unspecified osteoarthritis, unspecified site; E78.5 Hyperlipidemia, unspecified
CPT/HCPCS: 99211

== ENCOUNTER → 2020-08-13 | Outpatient (CLI) | payer OTHER ==
[2020-08-13 15:13] VITALS: BP 157/97; PULSE 99; RESP 18; TEMP 98.2; BMI 32.3
[2020-08-13 15:53] LABS: HCT 39.1 % (34.0-46.0); HGB 12.4 gm/dL (11.4-16.0); Hypochromasia Slight; MCH 28.6 pg (25.0-35.0); MCHC 31.8 g/dL (31.0-37.0); Mean Platelet Volume 7.9; Platelet Count 231 k/uL (150-450); RBC 4.35 m/uL (3.80-5.40); WBC 6.7 k/uL (3.8-10.6)
[2020-08-14 02:45] LABS: Ferritin 20.1 ng/mL (10.0-291.0)
[2020-08-14 03:13] LABS: % Iron Saturation 7.18 (12.00-45.00); ALT 18 U/L (8-44); AST 17 U/L (13-35); African American GFR (CKD) 118.9 (60.0-200.0); Albumin/Globulin Ratio 1.96 (1.60-3.17); Alkaline Phosphatase 62 U/L (41-126); BUN/Creat Ratio 38.33 Ratio (12.00-20.00); Calcium 10.3 mg/dL (8.7-10.3); Carbon Dioxide 26.4 mmol/L (21.6-31.8); Chloride 106 mmol/L (96-109); Folate, Serum >24.0 ng/mL; Globulin 2.3 g/dL (1.6-3.3); Glucose 104 mg/dL (70-110); Iron 26 ug/dL (50-170); Non-African American GFR(CKD) 102.6 (60.0-200.0); Sodium 143 mmol/L (135-145); Total Bilirubin 0.3 mg/dL (0.3-1.2); Total Iron Binding Capacity 362 ug/dL (228-460); Total Protein 6.8 g/dL (6.2-8.2); Vitamin B12 >4000.0 pg/mL (211-911)
[2020-08-14 13:07] LABS: Zinc, Serum 69 ug/dL (60-130)
[2020-08-15 06:52] LABS: Vitamin A 50 ug/dL (38-106)
[2020-08-15 07:04] LABS: Vit B1(Thiamine) 78 ug/L (38-122)
[2020-08-16 23:57] LABS: Selenium 122 mcg/L (63-160)
--- NOTE | 2020-09-20 12:25 | P.HPBAR ---
Bariatric H&P - History & Physicial H&P Date: 08/13/20 History & Physicial: Visit/CC: follow up Patient initial contact: Initial weight: 97.069 kg Initial weight in pounds: 214.00 Height: 5 ft 4.25 in Initial BMI: 36.4 Last weight: Current weight: 86.183 kg Current weight in pounds: 190.00 Current BMI: 32.3 [place] body weight (based on NIH guidelines): 54.998 kg Excess body weight loss: 25.8% The patient is a 55 year-old F who presents for Bariatric Assessment. Patient resents today for sleeve gastrectomy fall. She has some complaints of mild GERD. Past Medical History Past Medical History: Diabetes Mellitus, Hyperlipidemia, Hypertension, Osteoarthritis (OA) Additional Past Medical History / Comment(s): Carpal tunnel syndrome, DDD History of Any Multi-Drug Resistant Organisms: None Reported Past Surgical History: Bariatric Surgery, Breast Surgery, Joint Replacement, Orthopedic Surgery, Tonsillectomy, Uterine Ablation Additional Past Surgical History / Comment(s): , BILATERAL BREAST INMPLANTS 1995 bilateral hip replacement, benign tumor removed in groin at age 8 right foot surgery, EGD Sleeve gastrectomy 05-28-20 Past Anesthesia/Blood Transfusion Reactions: No Reported Reaction Additional Past Anesthesia/Blood Transfusion Reaction / Comm: HARD TO WAKE UP AFTER IMPLANTS. Past Psychological History: No Psychological Hx Reported Smoking Status: Former smoker Past Alcohol Use History: Occasional Additional Past Alcohol Use History / Comment(s): SMOKED 15 YEARS, 2 PPD, QUIT 2010; OCC USES NICORETTE GUM Past Drug Use History: None Reported - Past Family History Mother Family Medical History: Diabetes Mellitus, Hypertension, Myocardial Infarction ([place]) Surgical - Exam Vital Signs Temp Pulse Resp BP 98.2 F 99 18 157/97 08/13/20 15:10 08/13/20 15:10 08/13/20 15:10 08/13/20 15:10 - General well developed, well nourished, no distress - Eyes PERRL - ENT normal pinna - Neck no masses - Respiratory normal expansion - Cardiovascular Rhythm: regular - Abdomen Abdomen: soft, non tender Results - Labs 08/13/20 15:22 08/13/20 15:22 Bariatric Assessment & Plan Plan: Status post sleeve gastrectomy. Patient's GERD is minimal and will be observed. Bariatric Checklist Checklist: Plan: Checklist: EGD: 1. Hiatal hernia: 2. H. Pylori: HgbA1c: Vitamin D: Smoking: Former smoker Primary care physician referral: OLIVIA Crane ([facility]) Psychiatry clearance: Cardiology clearance: Sleep study: Diet journal: VTE risk score: VTE risk level: Rehab needs at discharge:
== END | disposition home or self-care (01) ==
LOC: BARWHC3 14:03
PROVIDERS: ATTEND Surgery
DX: Z09 Encounter for follow-up examination after completed treatment for conditions other than malignant neoplasm (principal); K21.9 Gastro-esophageal reflux disease without esophagitis; E11.9 Type 2 diabetes mellitus without complications; E78.5 Hyperlipidemia, unspecified; I10 Essential (primary) hypertension; M19.90 Unspecified osteoarthritis, unspecified site; Z98.84 Bariatric surgery status; Z87.891 Personal history of nicotine dependence
CPT/HCPCS: 36415; 80053; 82306; 82607; 82728; 82746; 83540; 83550; 83735; 84255; 84425; 84443; 84590; 84630; 85027; 99211

== ENCOUNTER → 2020-10-11 | Outpatient (CLI) | payer OTHER ==
--- NOTE | 2020-10-11 17:30 | ECHOF ---
Referral Reason:R94.31 abnormal EKG MEASUREMENTS -------- HEIGHT: 162.6 cm WEIGHT: 78.5 kg BP: RVIDd: 3.8 cm (< 3.3) IVSd: 1.2 cm (0.6 - 1.1) LVIDd: 3.6 cm (3.9 - 5.3) LVPWd: 1.3 cm (0.6 - 1.1) IVSs: 1.4 cm LVIDs: 2.6 cm LVPWs: 1.7 cm LAESV Index (A-L): 27.97 ml/m Ao Diam: 2.5 cm (2.0 - 3.7) AV Cusp: 1.4 cm (1.5 - 2.6) LA Diam: 3.7 cm (2.7 - 3.8) MV E Dedrick: 0.85 m/s MV DecT: 157 ms MV A Dedrick: 0.73 m/s MV E/A Ratio: 1.17 RAP: 5.00 mmHg RVSP: 22.98 mmHg FINDINGS -------- Sinus rhythm. This was a technically adequate study. The left ventricular size is normal. There is mild concentric left ventricular hypertrophy. Overa ll left ventricular systolic function is normal with, an EF between 55 - 60 %. The diastolic fillin g pattern is normal for the age of the patient 13.14. The right ventricle is mild to moderately enlarged. Normal LA size by volume 22+/-6 ml/m2. The right atrial size is normal. Interatrial and interventricular septum intact. There is no evidence of aortic regurgitation. There is no evidence of aortic stenosis. Mild mitral regurgitation is present. Mild tricuspid regurgitation present. There is no evidence of pulmonary hypertension. The right v entricular systolic pressure, as measured by Doppler, is 22.98mmHg. There is no pulmonic regurgitation present. The aortic root size is normal. Normal inferior vena cava with normal inspiratory collapse consistent with estimated right atrial pre ssure of 5 mmHg. There is no pericardial effusion. CONCLUSIONS -------- 1. The left ventricular size is normal. 2. There is mild concentric left ventricular hypertrophy. 3. Overall left ventricular systolic function is normal with, an EF between 55 - 60 %. 4. The diastolic filling pattern is normal for the age of the patient 13.14 5. The right ventricle is mild to moderately enlarged. 6. Mild mitral regurgitation is present. 7. Mild tricuspid regurgitation present. SHAREBROKER: Christelle Núñez RDCS
== END | disposition home or self-care (01) ==
LOC: RADECHMAIN 11:17
PROVIDERS: ATTEND Family Medicine
DX: I08.1 Rheumatic disorders of both mitral and tricuspid valves (principal)
CPT/HCPCS: 93306

== ENCOUNTER → 2021-05-23 | Outpatient (CLI) | payer BC ==
--- NOTE | 2021-05-24 12:30 | MM ---
Reason for exam: screening (asymptomatic). Last mammogram was performed 3 years and 8 months ago. History: Patient is postmenopausal. Saline implants in both breasts, 2005. Retro-pectoral silicone gel implants in both breasts, 1995. Physical Findings: A clinical breast exam by your physician is recommended on an annual basis and results should be correlated with mammographic findings. MG Screening Mammo Implant/CAD Bilateral CC, MLO, and ID view(s) were taken. Prior study comparison: October 06, 2017, bilateral MG screening mammo implant/CAD. November 14, 2014, bilateral MG diag mamm implants MOOSE w CAD. There are scattered fibroglandular densities. There is no discrete abnormality. Bilateral subpectoral implants redemonstrated. ASSESSMENT: Benign, BI-RAD 2 RECOMMENDATION: Routine screening mammogram of both breasts in 1 year.
== END | disposition home or self-care (01) ==
LOC: RADMAMWWP 12:39
PROVIDERS: ATTEND Family Medicine
DX: Z12.31 Encounter for screening mammogram for malignant neoplasm of breast (principal); Z78.0 Asymptomatic menopausal state
CPT/HCPCS: 77067

== ENCOUNTER → 2021-08-22 | Outpatient (CLI) | payer BC ==
--- NOTE | 2021-08-23 16:39 | CT ---
EXAMINATION TYPE: CT hip RT wo con CT DLP: 386.8 mGycm, Automated exposure control for dose reduction was used. DATE OF EXAM: 08/22/2021 5:52 PM COMPARISON: Radiograph 01/25/2019. CLINICAL INDICATION:Female, 56 years old with history of S76.011D STRAIN OF MUSCLE, FASCIA, TENDON R HIP, pain in rt hip TECHNIQUE: Axial images were obtained of the right hip without the use of IV contrast. Additional co dru and sagittal reformatted images and soft tissue and bone window were obtained for review. 3-D r econstruction was created on a separate workstation. FINDINGS: There is total right arthroplasty. No periprosthetic lucency to suggest loosening. Hardware appears intact. No acute fracture. There is appropriate positioning of the components. Streak artifa ct limits evaluation of the pelvis. The visualized portions of the muscles and tendons are grossly un remarkable. No organizing fluid collections. Mild atherosclerosis of the arterial vasculature. No fo adebayo muscular atrophy or edema is identified. IMPRESSION: 1. Total right arthroplasty changes with hardware intact. 2. No evidence of acute fracture. 3. No CT evidence for obvious myofascial/tendinitis injury.
== END | disposition home or self-care (01) ==
LOC: RADCTMAIN 17:22
PROVIDERS: ATTEND Orthopaedic Surgery
DX: Z09 Encounter for follow-up examination after completed treatment for conditions other than malignant neoplasm (principal); S76.011D Strain of muscle, fascia and tendon of right hip, subsequent encounter; I10 Essential (primary) hypertension; E78.5 Hyperlipidemia, unspecified; E11.9 Type 2 diabetes mellitus without complications; X58.XXXD Exposure to other specified factors, subsequent encounter; Z96.641 Presence of right artificial hip joint

== ENCOUNTER → 2022-05-29 | Outpatient (CLI) | payer BC ==
--- NOTE | 2022-05-30 08:18 | MM ---
Reason for Exam: Screening (asymptomatic). Last screening mammogram was performed 12 month(s) ago. Patient History: Menarche at age 13. First Full-Term at age 21. Postmenopausal. 2005, Bilateral Implants. 1995, Bilateral Implants. Risk Values: [place] 5 year model risk: 1.1%. NCI Lifetime model risk: 7.2%. Prior Study Comparison: 11/14/2014 Bilateral Diagnostic Mammogram, [facility]. 10/06/2017 Bilateral Screening Mammogram, [facility]. 05/23/2021 Bilateral Screening Mammogram, [facility]. Tissue Density: There are scattered fibroglandular densities. Findings: Analyzed By CAD. There are retropectoral bilateral breast implants redemonstrated. Stable distortion in the left breast upper aspect. There is no suspicious group of microcalcifications or new suspicious mass in either breast. Overall Assessment: Negative, BI-RAD 1 Management: Screening Mammogram of both breasts in 1 year. A clinical breast exam by your physician is recommended on an annual basis and results should be correlated with mammographic findings. Electronically signed and approved by: Rajeev Mcfarlane M.D.
--- NOTE | 2022-05-30 10:45 | BD ---
EXAMINATION TYPE: Axial Bone Density DATE OF EXAM: 05/29/2022 CLINICAL HISTORY: 56 years old Female. ICD-10 CODE: Z78.0 Post menopausal Height: 62.5 Weight: 164.7 FRAX RISK QUESTIONS: Alcohol (3 or more units per day): no Family History (Parent hip fracture): no Glucocorticoids (More than 3mos): no History of Fracture in Adulthood: no Secondary Osteoporosis: 1. Type 1 Diabetes: no 2. Hyperthyroidism: no 3. Menopause before 45: no 4. Malnutrition: no 5. Chronic liver disease: no Rheumatoid Arthritis: no Current Tobacco Use: no RISK FACTORS HISTORY OF: Hip Fracture (Right/Left): no Spine Fracture: no History of Wrist Fracture: no Surgery to Spine/Hip(right/left)/Wrist (right/left): bilateral hip replacements When: 2019 and 2019 Family History of Osteoporosis: no Active: yes Diet low in dairy products/other sources of calcium: yes Postmenopausal woman: yes Take estrogen and/or progesterone medications: no Lost more than 2 inches in height since high school: no Frequent falls: yes Poor Health: no Hyperparathyroidism: no Adrenal Insufficiency: no MEDICATIONS: Prednisone or other steroids: no Thyroid Medications: no Osteoporosis Medications: no Additional Medications: BP meds, multi vit., vit d, biotin, Additional History: EXAM MEASUREMENTS: Bone mineral densitometry was performed using the mobile mum System. Bone mineral density as measured about the Lumbar spine is: ----- L1-L4(G/cm2): 1.373 T Score Values are as follows: ----- L1: 0.7 ----- L2: 1.1 ----- L3: 1.9 ----- L4: 2.3 ----- L1-L4: 1.6 Z Score Values are as follows: ----- L1: 1.3 ----- L2: 1.7 ----- L3: 2.6 ----- L4: 2.9 ----- L1-L4: 2.2 Baseline Study Bone mineral density about the L Wrist (g/cm2): 0.682 T Score values are as follows: -----Dist. R+U: -0.3 -----Prox. R+U: 0.8 -----Radius total: 0.1 Z Score values are as follows: -----Dist. R+U: 0.4 -----Prox. R+U: 1.5 -----Radius total: 0.8 Baseline Study FRAX%s: The graph provided illustrates a % chance for a major osteoporotic fx and a % chance for the hips probability for fx in 10 years time. Hips were not scanned IMPRESSION: Normal (Values between +1 and -1 indicate normal bone mass). Consider repeating this study in 5 year s or sooner if there is some new clinical indication. NOTE: T-SCORE=SD OF THE YOUNG ADULT MEAN.
== END | disposition home or self-care (01) ==
LOC: RADMAMWWP 14:51
PROVIDERS: ATTEND Family Medicine
DX: Z12.31 Encounter for screening mammogram for malignant neoplasm of breast (principal); Z78.0 Asymptomatic menopausal state; Z98.82 Breast implant status; Z96.643 Presence of artificial hip joint, bilateral
CPT/HCPCS: 77067; 77080

== ENCOUNTER → 2022-06-20 | Outpatient (CLI) | payer BC ==
--- NOTE | 2022-06-23 06:05 | MR ---
EXAMINATION TYPE: MR cspine/lspine wo con DATE OF EXAM: 06/20/2022 COMPARISON: NONE HISTORY: Pain, stiffness, headaches. Limited movement with numbness in both hands for about one year. Severe low back pain into right buttocks and thigh TECHNIQUE: Multiplanar, multisequence imaging of the cervical and lumbar spine are performed without IV contrast. FINDINGS: Cervical spine: Sagittal images of the cervical spine show the craniocervical junction to appear within normal limits . The cervical and upper thoracic spinal cord shows subtle increased signal in the mid to lower cerv ical spine greatest at superior C7 level. There is grade 1 retrolisthesis C5 on C6 and C6 on C7. The vertebral body heights are normal. Moderate disc space narrowing and anterior spurring C5-C6 and C6- C7 levels is seen with heterogeneous Modic type I endplate changes greatest at C5-C6 level noted. Axial images at C2-C3 level from uncovertebral facet degenerative changes bilaterally causing mild bi lateral neural foraminal narrowing. Axial images at C3-C4 level show uncovertebral facet degenerative change causing minimal right-sided neural foraminal narrowing, there is small central disc protrusion mildly effaces the anterior thecal sac. Axial images at C4-C5 level shows tiny central disc protrusion minimally effacing the anterior thecal sac and uncovertebral facet degenerative changes causing mild bilateral neural foraminal narrowing. Axial images at C5-C6 levels with spondylolisthesis with broad-based left paracentral disc protrusion effacing the anterior lateral thecal sac of the ventral surface of spinal cord and causing mild righ t along with advanced left-sided neural foraminal narrowing. Axial images at C6-C7 levels with spondylolisthesis with broad-based posterior disc protrusion efface s the anterior thecal sac and causing moderate to advanced bilateral neural foraminal narrowing. Axial images at C7-T1 level appear within normal limits. Note is made of 1.9 cm right thyroid nodule axial image 4. Advise thyroid ultrasound follow-up to fur ther evaluate and/or characterize at this is not known finding. IMPRESSION: Multilevel spondylolisthesis and degenerative change in the cervical spine greatest at C5 -C6 and C6-C7 levels as detailed above. Lumbar spine: Sagittal images of the lumbar spine show vertebral body heights to appear satisfactory. Slight or sub tle grade 1 anterolisthesis L4 on L5. Multilevel disc desiccation. Moderate disc space narrowing L3-L 4 and L4-L5 levels is seen. The conus medullaris is normal in position and signal ending at superior L1 level. The bone marrow signal intensity is within normal limits. Mild to moderate multilevel ante rior spurring is seen. Axial images show T12-L1 through L2-L3 levels to appear within normal limits. Axial images at the L3-L4 level show mild/moderate broad-based posterior disc protrusion mildly effac ing anterior thecal sac and causing mild bilateral anterior inferior neural foraminal narrowing. Axial images at L4-L5 level show spondylolisthesis with mild to moderate broad disc bulge and focal r ight paracentral disc protrusion mildly facing anterior thecal sac. There is moderate right greater t mary left facet arthropathy bilaterally. There is mild right and mild/moderate left-sided neural nila inal narrowing seen. Axial images at L5-S1 level show mild/moderate facet arthropathy bilaterally. There is posterior cent ral disc protrusion but the spinal canal is preserved. Bilateral neural foramina are patent. Paraspinal muscle bulk is maintained. There are two subcentimeter T2 hyperintense lesions in the righ t kidney axial image 33 partially imaged favoring benign simple cysts. IMPRESSION: Multilevel degenerative change in the mid to lower lumbar spine as detailed above
== END | disposition home or self-care (01) ==
LOC: RADMRIMAIN 07:14
PROVIDERS: ATTEND Neurological Surgery
DX: M47.816 Spondylosis without myelopathy or radiculopathy, lumbar region (principal); M47.812 Spondylosis without myelopathy or radiculopathy, cervical region; M48.02 Spinal stenosis, cervical region; M48.07 Spinal stenosis, lumbosacral region; M43.12 Spondylolisthesis, cervical region
CPT/HCPCS: 72141; 72148

== ENCOUNTER → 2022-07-03 | Outpatient (CLI) | payer BC ==
--- NOTE | 2022-07-03 14:58 | P.PAINPG ---
PQRS Measure Charge Sheet Comment: HISTORY OF PRESENT ILLNESS: 57 yr old female as a referral from Dr Balta Stewart presents today w severe and chronic neck pain secondary to spondylolisthesis, DDD and facet arthropathy without myelopathy for evaluation. Pt states pain level is provoked at 10 /10 in intensity, constant, localized in the lower cervical spine, sore in character w shooting pain towards the hands accompanied with tingling. Pain is provoked by rotation. Pain is alleviated by medications (tramadol), topical, injections in the past for sciatica, ice, heat, chiropractic treatments weekly 3 but discontinued after therapist reviewed MRI, massage therapy weekly 3 till May 2022, Epsom soaks, repositioning and rest. PMH:DM II, Hyperlipidemia, HTN, OA, CTS PSH: EGD Sleeve Gastrectomy (2020), Breast Augmentation (1995), BL Hip Replacement, R Foot Surgery (age 8), Tonsillectomy, Uterine Ablation, SH: Former tobacco user, Occasional ETOH use, No illicit drug use FH: Mo- DM, HTN, FL. All: NKDA Meds: See list REVIEW OF ORGAN SYSTEMS: CONSTITUTIONAL: No fevers or chills. No recent weight loss. NEUROLOGICAL: + numbness and tingling along the distal extremities. No seizure disorders or headaches. MUSCULOSKELETAL: + pain PSYCHIATRIC: Denies current depression or suicidal thoughts. Physical Examinations : Constitutional : Cooperative , not in acute distress . Neurologic : Cranial nerve II to XII intact. No focal neurological deficits. Psychiatric : alert & oriented x 3. Matching mood & appropriate affect. Judgment & insight intact. Musculoskeletal : Cervical Spine Motor strength in the deltoid and biceps: Normal right side. Normal Left side Motor strength biceps and the wrist extensors: Normal right side . Normal left side Motor strength in the triceps muscle: Normal right side. Normal left side Deep tendon reflexes: Normal at the biceps. Normal at Brachioradialis. Normal at triceps Vertebral body tenderness to deep palpation over C6 Cervical facet loading test: positive bilaterally Spurling test: positive bilaterally at C6 Neck distraction test: positive bilaterally Nanette sign: positive bilaterally Lumbar spine Motor strength lower extremities ,thigh and legs 5/5 Right side , 5/5 Left side Deep tendon reflexes : Normal Knee Jerk. Normal Ankle Jerk Vertebral body tenderness over Lumbar facet Loading Test: positive Ri ght / positive Left Range of motion of the lumbar spine Flexion 30 degrees, extension 10 degrees Straight Leg Raise test: Left/ Right positive at degree Osman test: positive right / positive left. Severe tenderness over the Sacroiliac joint on the Right / Left sides Gaenslen test: positive bilaterally Seated flexion test: positive bilaterally. Sacral spine : Severe tenderness over the Sacroiliac joint: right side / left side Range of motion: Flexion of the lumbar spine <60 degrees Range of motion: Extension of the lumbar spine <20 degrees Gaenslen's Test positive Girish's Test positive Osman test: positive right side / left side Thigh Thrust Test Sacral Thrust Test Imaging: MRI noncontrast of the cervical spine from 06/20/22 reviewed Assessment/ Plan : Cervical spondylolisthesis Recommendation of RAEANN C6-C7. May need a series of injections for optimal pain relief. Risks, benefits of procedure discussed and patient verbalized understanding. Admits to aspirin or anti- coagulant use or medical history of diabetes. Protocol for discontinuation/ continuation of medications nick procedure discussed. All questions answered. I have spent greater than 30 minutes on patient care today. Dr Bhandari was available by phone for the evaluation of this patient. The time was used to review the medical records including relevant urine studies and Prescription history (MAPs), review of the available imaging, evaluation and examination of the patient, coordination of care with the medical staff and if applicable referring physicians, as well as creation of the medical record PQRS Narrative: Smoking Status Former smoker Home Medications: Ambulatory Orders metFORMIN HCL [Glucophage] 500 mg PO DAILY 07/20/13 Cetirizine HCl [Zyrtec] 10 mg PO DAILY 10/29/17 Folic Acid 1 mg PO DAILY 01/20/19 metHOTREXate sodium [Methotrexate] 12.5 mg PO ADDISON 01/20/19 Diclofenac Sodium [Voltaren] 75 mg PO BID 03/12/20 Controlled Substance Measures - Controlled Substance Measures Is patient prescribed a controlled substance at discharge?: No
[2022-07-03 15:27] VITALS: BP 154/83; PULSE 78; RESP 18; TEMP 97.6
== END ==
LOC: PNWHC3 10:42
PROVIDERS: ATTEND Specialist
DX: M43.12 Spondylolisthesis, cervical region (principal); G89.29 Other chronic pain; E11.9 Type 2 diabetes mellitus without complications; E78.5 Hyperlipidemia, unspecified; I10 Essential (primary) hypertension; M19.90 Unspecified osteoarthritis, unspecified site; R93.0 Abnormal findings on diagnostic imaging of skull and head, not elsewhere classified; Z87.891 Personal history of nicotine dependence; Z79.84 Long term (current) use of oral hypoglycemic drugs
CPT/HCPCS: 99211

== ENCOUNTER 2022-07-15 08:56 | Day surgery (SDC) | payer BC ==
[2022-07-15] MEDS ORDERED: LIDOCAINE 1% (10MG/ML) FOR IV START INTRADERMA PRN (09:12)
[2022-07-15 09:16] VITALS: TEMP 97.9
[2022-07-15] MEDS: LACTATED RINGERS 1,000 ML IV SCH ×2 (09:39→09:50)
[2022-07-15 09:54] LABS: Glucose,Whole Blood 103 mg/dL (70-110)
[2022-07-15] MEDS ORDERED: MIDAZOLAM 2 MG/2 ML VIAL ONE (09:55)
[2022-07-15] MEDS ORDERED: DEXAMETHASONE SOD PHOSPHATE 10 MG/ML 1 ML VIAL ONE (09:55)
[2022-07-15] MEDS ORDERED: IOPAMIDOL M200 10 ML VIAL ONE (09:55)
[2022-07-15] MEDS ORDERED: fentaNYL (PF) 50 MCG/ML 2 ML AMP ONE (09:55)
--- NOTE | 2022-07-15 10:02 | P.PCN ---
Date of Procedure: 07/15/22 Procedure(s) Performed: . PROCEDURE 1. Cervical epidural steroid injection under fluoroscopic guidance, C6-7 (fluoroscopy images available in the radiology department ) 2. Cervical epidurogram. PREOPERATIVE DIAGNOSIS: 1- Cervical Degenerative Disc Diseases 2-cervical spondylosis with cervical Facet arthropathy without myelopathy. POSTOPERATIVE DIAGNOSIS: : 1- Cervical Degenerative Disc Diseases ,2-cervical spondylosis with cervical Facet arthropathy without myelopathy. ANESTHESIA: moderate sedation, with Versed 2 mg and Fentanyl 100 mcg. Sedation start time :954 Sedation end time :958 EBL 0 PROCEDURE INDICATION: The patient with neck pain and radiculitis unresponsive to conservative treatment consents for procedure. PROCEDURE DESCRIPTION / TECHNIQUE: The patient was seen and identified in the preoperative area. Risks, benefits, complications, including but not limited to infections ,bleeding , allergic reactions to the medications ,and not complete pain releife, and alternatives were discussed with the patient, the patient agreed to proceed with the procedure and signed the consent. Patient was taken to the OR and time out was completed. The patient was placed in the prone position on the procedure table. A pillow wa s placed under the patients chest to increase the cervical interlaminar space. The cervical area was prepped and draped in the usual sterile fashion. Vital signs were closely monitored during the procedure. Conscious sedation was used during the procedure to decrease patients anxiety. Using anterior-posterior fluoroscopy, the C6-7 interlaminar space was identified and the skin over this site was marked and then infiltrated with 1% lidocaine subcutaneously. Subsequently, a 20-gauge 3-1/2-inch Tuohy epidural needle was inserted and advanced toward the epidural space by means of the ``hanging-drop technique and guided by AP and lateral fluoroscopy. The correct needle position in the epidural space was verified with the injection of 2 mL of the water soluble contrast dye Isovue-200 and observing an excellent epidurogram with the epidural spread of the dye, after negative aspiration for blood and CSF and in the absence of paresthesias. then, mixture containing 20 mg Dexamethasone and 2 ml of preservative-free normal saline injected and a washout of epidurogram was seen. Needle was withdrawn intact, skin was cleansed, and bandages were applied. Complications= none. Disposition= patient was placed in supine position and transferred to the recovery room area in stable condition and there was no evidence of upper or lower extremity motor or sensory deficit after the procedure patient was discharged from recovery room after discharge criteria met and home discharge instructions was given by the staff and patient will follow with the pain clinic in 2-4 weeks
[2022-07-15] MEDS ORDERED: IV FLUID CONTINUATION 700 ML IV ONE (10:06)
[2022-07-15 10:08] VITALS: RESP 16
[2022-07-15 10:22] VITALS: BP 147/81; PULSE 71
--- NOTE | 2022-07-15 11:04 | FL ---
EXAMINATION TYPE: FL guided pain mgmt statistic DATE OF EXAM: 07/15/2022 HISTORY: Fluoroscopy time Total dose area product (DAP) in mGy*m? (or similar): 0.20611 IMPRESSION: 1. Fluoroscopy time.
== END 2022-07-15 10:44 | disposition home or self-care (01) ==
LOC: ORPAIN 08:56
PROVIDERS: ATTEND Specialist
DX: M50.123 Cervical disc disorder at C6-C7 level with radiculopathy (principal); M47.22 Other spondylosis with radiculopathy, cervical region
CPT/HCPCS: 62321; J2250; J1100; J3010; Q9966

== ENCOUNTER → 2022-09-08 | Outpatient (CLI) | payer BC ==
[2022-09-08 10:02] VITALS: BP 131/86; PULSE 79; RESP 16; TEMP 98.2
--- NOTE | 2022-09-08 14:28 | P.PAINPG ---
PQRS Measure Charge Sheet Comment: 57 yr old female as a referral from Dr Balta Stewart presents today w severe and chronic neck pain secondary to spondylolisthesis, DDD and facet arthropathy without myelopathy for evaluation. Pt states she experienced 0% pain relief s/p procedure. Pt states pain level is provoked at 8 /10 in intensity, constant, localized in the lower R lumbar spine, tightness in character w shooting pain towards the RLE. Pain is provoked by rotation. Pain is alleviated by medications, topical, injections in the past for sciatica, ice, heat, chiropractic treatments weekly 3 but discontinued after therapist reviewed MRI, massage therapy weekly 3 till May 2022, Epsom soaks, repositioning and rest. Oswestry axial pain score of 31. Inteventional procedures include RAEANN C6-C7 x1 Medications include Tramadol, Tyl REVIEW OF ORGAN SYSTEMS: CONSTITUTIONAL: No fevers or chills. No recent weight loss. NEUROLOGICAL: + numbness and tingling along the distal extremities. No seizure disorders or headaches. MUSCULOSKELETAL: + pain PSYCHIATRIC: Denies current depression or suicidal thoughts. Physical Examinations : Constitutional : Cooperative , not in acute distress . Neurologic : Cranial nerve II to XII intact. No focal neurological deficits. Psychiatric : alert & oriented x 3. Matching mood & appropriate affect. Judgment & insight intact. Musculoskeletal : Cervical Spine Motor strength in the deltoid and biceps: Normal right side. Normal Left side Motor strength biceps and the wrist extensors: Normal right side . Normal left side Motor strength in the triceps muscle: Normal right side. Normal left side Deep tendon reflexes: Normal at the biceps. Normal at Brachioradialis. Normal at triceps Vertebral body tenderness to deep palpation Cervical facet loading test: positive bilaterally Spurling test: positive bilaterally Neck distraction test: positive bilaterally Nanette sign: positive bilaterally Lumbar spine Motor strength lower extremities ,thigh and legs 5/5 Right side , 5/5 Left side Deep tendon reflexes : Normal Knee Jerk. Normal Ankle Jerk Vertebral body tenderness over L5 Lumbar facet Loading Test: positive Right / positive Left Range of motion of the lumbar spine Flexion 30 degrees, extension 10 degrees Straight Leg Raise test: Left/ Right positive at 35 degrees Osman test: positive right / positive left. Severe tenderness over the Sacroiliac joint on the Right / Left sides Gaenslen test: positive bilaterally Seated flexion test: positive bilaterally. Sacral spine : Severe tenderness over the Sacroiliac joint: right side / left side Range of motion: Flexion of the lumbar spine <60 degrees Range of motion: Extension of the lumbar spine <20 degrees Gaenslen's Test positive Girish's Test positive Osman test: positive right side / left side Thigh Thrust Test Sacral Thrust Test Imaging: MRI noncontrast of the lumbar spine from 06/20/22 reviewed Assessment/ Plan : Lumbar spondylosis Recommendation of RAEANN L5-S1 #1. May need a series of injections for optimal pain relief. Risks, benefits of procedure discussed and patient verbalized understanding. Admits to aspirin or anti- coagulant use or medical history of diabetes. Protocol for discontinuation/ continuation of medications nick procedure discussed. All questions answered. I have spent greater than 30 minutes on patient care today. Dr Bhandari was available by phone for the evaluation of this patient. The time was used to review the medical records including relevant urine studies and Prescription history (MAPs), review of the available imaging, evaluation and examination of the patient, coordination of care with the medical staff and if applicable referring physicians, as well as creation of the medical record PQRS Narrative: Smoking Status Former smoker Hx Alcohol Use (MH) Yes: SOCIAL Home Medications: Ambulatory Orders Cetirizine HCl [Zyrtec] 10 mg PO DAILY 10/29/17 Metoprolol Tartrate [Lopressor] 12.5 mg PO DAILY 07/11/22 traMADol HCL 50 mg PO BID PRN 07/11/22 Controlled Substance Measures - Controlled Substance Measures Is patient prescribed a controlled substance at discharge?: No
== END ==
LOC: PNWHC3 08:51
PROVIDERS: ATTEND Specialist
DX: M51.36 Other intervertebral disc degeneration, lumbar region (principal); M47.816 Spondylosis without myelopathy or radiculopathy, lumbar region; G89.29 Other chronic pain; Z87.891 Personal history of nicotine dependence
CPT/HCPCS: 99211

== ENCOUNTER 2022-09-23 08:03 | Day surgery (SDC) | payer BC ==
[2022-09-18 14:38] VITALS: BMI 30.2
[~2022-09-23 08:03] MED LIST changes: -DEXAMETHASONE SOD PHOSPHATE 4 MG/ML 1 ML VIAL IV ONE; -ENOXAPARIN 40 MG/0.4 ML SYRINGE SQ PRN; +LACTATED RINGERS 1,000 ML IV SCH; -MIDAZOLAM 2 MG/2 ML VIAL IV PRN; -ONDANSETRON 4 MG/2 ML VIAL IVP ONE; -fentaNYL (PF) 50 MCG/ML 2 ML AMP IV PRN
[2022-09-23 08:31] VITALS: TEMP 97.4
[2022-09-23] MEDS ORDERED: methylPREDNISolone ACETATE 80 MG/ML 1 ML VIAL ONE (08:45)
[2022-09-23] MEDS ORDERED: IOPAMIDOL M200 10 ML VIAL ONE (08:45)
--- NOTE | 2022-09-23 08:50 | P.PCN ---
Date of Procedure: 09/23/22 Procedure(s) Performed: PREOPERATIVE DIAGNOSIS: 1- Lumbar Degenerative Disc Diseases 2-Lumbar spondylosis with Facet arthropathy without myelopathy. POSTOPERATIVE DIAGNOSIS: 1-lumbar degenerative disc disease. 2-lumbar spondylosis with facet arthropathy without myelopathy. PROCEDURE 1. Lumbar epidural steroid injection under fluoroscopic guidance at the L5-S1 level. (Fluoroscopy imaging was available in radiology department) 2. Lumbar epidurogram. ANESTHESIA: Lidocaine 1% 3 and then only. EBL: Minimal PROCEDURE INDICATION: The patient with low back pain and radiculitis symptoms unresponsive to conservative treatment. Fluoroscopy was used to optimize visualization of the needle placement and to maximize safety. PROCEDURE DESCRIPTION / TECHNIQUE: The patient was seen and identified in the preoperative area. Risks, benefits, complications including but not limited to infections ,bleeding ,allergic reaction to the medications ,nerve damage and not complete pain releife , and alternatives were discussed with the patient. The patient agreed to proceed with the procedure and signed the consent, and vital signs were stable. Patient was taken to the OR and time out was completed. The patient was placed in the prone position on procedure table and a pillow was placed under the abdomen to reduce lumbar lordosis. The lumbosacral area was prepped and draped in the usual sterile fashion.ere closely monitored during the procedure. Vital signs was monitered during the entire procedure. Using anterior-posterior fluoroscopy, the L5-S1 interlaminar space was identified and the skin over this site was marked and then infiltrated with 1% lidocaine subcutaneously. Subsequently, a 20-gauge Tuohy epidural needle was inserted and advanced toward the epidural space using the ``Loss of resistance technique and guided by AP and lateral fluoroscopy. The correct needle position in the epidural space was verified with the injection of 2 mL of the water soluble contrast dye Isovue 200 contrast and observing an excellent epidurogram with the epidural spread of the dye, after negative aspiration for blood and CSF and in the absence of paresthesias. Again after negative aspiration, a 6 ml mixture containing 80 mg of Depo-medrol ( Preservetive Free ), and 2 ml of preservative free Normal Saline, and 2 ml of preservative free lidocaine 1% solution was injected and a washout of epidurogram was seen. Needle was withdrawn intact, skin was cleansed, and bandages were applied. COMPLICATIONS: None DISPOSITION / PLANS: The patient was placed in a supine position and transferred to the recovery area in a stable condition for observation. There was no evidence of lower extremity motor or sensory deficit after the procedure. Patient was discharged from the recovery room after meeting discharge criteria. Home discharge instructions were given to the patient by the staff. The patient was reexamined prior to discharge. The patient will schedule a follow up in the clinic in 2-4 weeks.
[2022-09-23 08:58] VITALS: BP 129/75; PULSE 88; RESP 14
--- NOTE | 2022-09-23 09:10 | FL ---
Intraoperative/procedural fluoroscopic services were provided. Total fluoroscopy time is 2 seconds wi th a total of 1 submitted images to PACS. Please see the operative/procedural note for further detail s. DAP: [id number] mGym2
== END 2022-09-23 09:10 | disposition home or self-care (01) ==
LOC: ORPAIN 08:03
PROVIDERS: ATTEND Specialist
DX: M51.16 Intervertebral disc disorders with radiculopathy, lumbar region (principal); M47.26 Other spondylosis with radiculopathy, lumbar region
CPT/HCPCS: 62323; J1040; Q9966

== ENCOUNTER → 2022-10-16 | Outpatient (CLI) | payer BC ==
[2022-10-16 11:29] VITALS: BP 138/86; PULSE 70; RESP 15; TEMP 98.3
--- NOTE | 2022-10-16 12:28 | P.PAINPG ---
PQRS Measure Charge Sheet Comment: 57 yr old female presents today w severe and chronic LBP secondary to spondylolisthesis, DDD and facet arthropathy without myelopathy for evaluation s/p RAEANN L5-S1. Pt states she experienced 75% pain relief x 3 wks s/p procedure. Pt states pain level is provoked at 8 /10 in intensity, achy in character w radiating numbness to the L shoulder. Pain is provoked w any movement. Pain is alleviated by medications, topical, injections, ice, heat, chiropractic treatments weekly 3 but discontinued after therapist reviewed MRI, massage therapy weekly 3 till May 2022, Epsom soaks, repositioning and rest. Oswestry axial pain score of 17. Inteventional procedures include RAEANN C6-C7 x1, L5-S1 x1 Medications include Tramadol, Tyl REVIEW OF ORGAN SYSTEMS: CONSTITUTIONAL: No fevers or chills. No recent weight loss. NEUROLOGICAL: + numbness and tingling along the distal extremities. No seizure disorders or headaches. MUSCULOSKELETAL: + pain PSYCHIATRIC: Denies current depression or suicidal thoughts. Physical Examinations : Constitutional : Cooperative , not in acute distress . Neurologic : Cranial nerve II to XII intact. No focal neurological deficits. Psychiatric : alert & oriented x 3. Matching mood & appropriate affect. Judgment & insight intact. Musculoskeletal : Cervical Spine Motor strength in the deltoid and bi ceps: Normal right side. Normal Left side Motor strength biceps and the wrist extensors: Normal right side . Normal left side Motor strength in the triceps muscle: Normal right side. Normal left side Deep tendon reflexes: Normal at the biceps. Normal at Brachioradialis. Normal at triceps Vertebral body tenderness to deep palpation Cervical facet loading test: positive bilaterally over C4-C5, C5-C6 Spurling test: positive bilaterally Neck distraction test: positive bilate rally Nanette sign: positive bilaterally Lumbar spine Motor strength lower extremities ,thigh and legs 5/5 Right side , 5/5 Left side Deep tendon reflexes : Normal Knee Jerk. Normal Ankle Jerk Vertebral body tenderness Lumbar facet Loading Test: positive Right / positive Left Range of motion of the lumbar spine Flexion 30 degrees, extension 10 degrees Straight Leg Raise test: Left/ Right positive at 35 degrees Osman test: positive right / positive left. Severe tenderness over the Sacroiliac joint on the Right / Left sides Gaenslen test: positive bilaterally Seated flexion test: positive bilaterally. Sacral spine : Severe tenderness over the Sacroiliac joint: right side / left side Range of motion: Flexion of the lumbar spine <60 degrees Range of motion: Extension of the lumbar spine <20 degrees Gaenslen's Test positive Girish's Test positive Osman test: positive right side / left side Thigh Thrust Test Sacral Thrust Test Imaging: MRI noncontrast of the lumbar spine from 06/20/22 reviewed Assessment/ Plan : Lumbar spondylosis, Cervical DDD Recommendation of BL facet block of the medial branches C4-C5, C5-C6 #1. May need a series of injections, up until RFA, for optimal pain relief. Risks, benefits of procedure discussed and pt verbalized understanding. All questions answered. I have spent greater than 30 minutes on patient care today. Dr Bhandari was available by phone for the evaluation of this patient. The time was used to review the medical records including relevant urine studies and Prescription history (MAPs), review of the available imaging, evaluation and examination of the patient, coordination of care with the medical staff and if applicable referring physicians, as well as creation of the medical record PQRS Narrative: Smoking Status Former smoker Hx Alcohol Use (MH) Yes: SOCIAL Home Medications: Ambulatory Orders Cetirizine HCl [Zyrtec] 10 mg PO DAILY 10/29/17 Metoprolol Tartrate [Lopressor] 12.5 mg PO DAILY 07/11/22 traMADol HCL 100 mg PO BID PRN 07/11/22 Acetaminophen [Tylenol Arthritis] 650 mg PO BID 09/08/22 Controlled Substance Measures - Controlled Substance Measures Is patient prescribed a controlled substance at discharge?: No
== END ==
LOC: PNWHC3 11:03
PROVIDERS: ATTEND Specialist
DX: M50.322 Other cervical disc degeneration at C5-C6 level (principal); M47.812 Spondylosis without myelopathy or radiculopathy, cervical region; Z87.891 Personal history of nicotine dependence
CPT/HCPCS: 99211

== ENCOUNTER → 2022-11-20 | Outpatient (CLI) | payer BC ==
--- NOTE | 2022-11-20 12:34 | P.PAINPG ---
PQRS Measure Charge Sheet Comment: 57 yr old female presents today w severe and chronic neck pain secondary to DDD, spondylosis and facet arthropathy without myelopathy for evaluation s/p BL MBB C4-C5, C5-C6 #1. Pt states she experienced 10% pain relief x 3 wks s/p procedure. Pt states pain level is provoked at 9 /10 in intensity, sharp pressu re in character w radiating numbness to the BL shoulders. Pain is provoked w any movement. Pain is alleviated by injections, medications, topical, injections, ice, heat, chiropractic treatments weekly 3 visits but discontinued after therapist reviewed MRI, massage therapy weekly 3 visits till May 2022, Epsom soaks, repositioning and rest. Oswestry axial pain score of 17. Inteventional procedures include RAEANN C6-C7 x1, L5-S1 x1, BL MBB C4-C6 x1 Medications include Tramadol, Tyl REVIEW OF ORGAN SYSTEMS: CONSTITUTIONAL: No fevers or chills. No recent weight loss. NEUROLOGICAL: + numbness and tingling along the distal extremities. No seizure disorders or headaches. MUSCULOSKELETAL: + pain PSYCHIATRIC: Denies current depression or suicidal thoughts. Physical Examinations : Constitutional : Cooperative , not in acute distress . Neurologic : Cranial nerve II to XII intact. No focal neurological deficits. Psychiatric : alert & oriented x 3. Matching mood & appropriate affect. Judgment & insight intact. Musculoskeletal : Cervical Spine Motor strength in the deltoid and biceps: Normal right side. Normal Left side Motor strength biceps and the wrist extensors: Normal right side . Normal left side Motor strength in the triceps muscle: Normal right side. Normal left side Deep tendon reflexes: Normal at the biceps. Normal at Brachioradialis. Normal at triceps Vertebral body tenderness to deep palpation over C6 Cervical facet loading test: positive bilaterally over C4-C5, C5-C6 Spurling test: positive bilaterally Neck distraction test: positive bilaterally Nanette sign: positive bilaterally Lumbar spine Motor strength lower extremities ,thigh and legs 5/5 Right side , 5/5 Left side Deep tendon reflexes : Normal Knee Jerk. Normal Ankle Jerk Vertebral body tenderness Lumbar facet Loading Test: positive Right / positive Left Range of motion of the lumbar spine Flexion 30 degrees, extension 10 degrees Straight Leg Raise test: Left/ Right positive at 35 degrees Osman test: positive right / positive left. Severe tenderness over the Sacroiliac joint on the Right / Left sides Gaenslen test: positive bilaterally Seated flexion test: positive bilaterally. Sacral spine : Severe tenderness over the Sacroiliac joint: right side / left side Range of motion: Flexion of the lumbar spine <60 degrees Range of motion: Extension of the lumbar spine <20 degrees Gaenslen's Test positive Girish's Test positive Osman test: positive right side / left side Thigh Thrust Test Sacral Thrust Test Imaging: MRI noncontrast of the lumbar spine from 06/20/22 reviewed Assessment/ Plan : Cervical DDD Recommendation of Behavioral Health Eval for SCS Trial Dx M54.12, G89.4 Video viewed. Risks, benefits of procedure discussed and pt verbalized understanding. All questions answered. I have spent greater than 30 minutes on patient care today. Dr Bhandari was available by phone for the evaluation of this patient. The time was used to review the medical records including relevant urine studies and Prescription history (MAPs), review of the available imaging, evaluation and examination of the patient, coordination of care with the medical staff and if applicable referring physicians, as well as creation of the medical record PQRS Narrative: Smoking Status Former smoker Hx Alcohol Use (MH) Yes: SOCIAL Home Medications: Ambulatory Orders Cetirizine HCl [Zyrtec] 10 mg PO DAILY 10/29/17 Metoprolol Tartrate [Lopressor] 12.5 mg PO DAILY 07/11/22 traMADol HCL 100 mg PO BID PRN 07/11/22 Acetaminophen [Tylenol Arthritis] 650 mg PO BID 09/08/22 Controlled Substance Measures - Controlled Substance Measures Is patient prescribed a controlled substance at discharge?: No
[2022-11-20 13:05] VITALS: BP 115/75; PULSE 77; RESP 15; TEMP 98.2
== END ==
LOC: PNWHC3 10:58
PROVIDERS: ATTEND Specialist
DX: M50.121 Cervical disc disorder at C4-C5 level with radiculopathy (principal); M50.122 Cervical disc disorder at C5-C6 level with radiculopathy; G89.4 Chronic pain syndrome; Z87.891 Personal history of nicotine dependence
CPT/HCPCS: 99211

== ENCOUNTER → 2022-12-11 | Outpatient (CLI) | payer BC ==
[2022-12-11 10:27] VITALS: BP 127/72; PULSE 76; RESP 15; TEMP 98.2
--- NOTE | 2022-12-11 14:38 | P.PAINPG ---
PQRS Measure Charge Sheet Comment: 57 yr old female presents today w severe and chronic neck pain secondary to DDD, spondylosis and facet arthropathy without myelopathy for evaluation. Received behavioral health clearance for SCS Trial. Pt states pain level is provoked at 8/10 in intensity, sharp pressure in character w radiating numbness to the BL shoulders. Pain is provoked w any movement. Pain is alleviated by injections (slightly), medications, topical, injections, ice, heat, chiropractic treatments weekly 3 visits but discontinued after therapist reviewed MRI, massage therapy weekly 3 visits till May 2022, Epsom soaks, repositioning and rest. Oswestry axial pain score of 17. Inteventional procedures include RAEANN C6-C7 x1, L5-S1 x1, BL MBB C4-C6 x1 Medications include Tramadol, Tyl REVIEW OF ORGAN SYSTEMS: CONSTITUTIONAL: No fevers or chills. No recent weight loss. NEUROLOGICAL: + numbness and tingling along the distal extremities. No seizure disorders or headaches. MUSCULOSKELETAL: + pain PSYCHIATRIC: Denies current depression or suicidal thoughts. Physical Examinations : Constitutional : Cooperative , not in acute distress . Neurologic : Cranial nerve II to XII intact. No focal neurological deficits. Psychiatric : alert & oriented x 3. Matching mood & appropriate affect. Judgment & insight intact. Musculoskeletal : Cervical Spine Motor strength in the deltoid and biceps: Normal right side. Normal Left side Motor strength biceps and the wrist extensors: Normal right side . Normal left side Motor strength in the triceps muscle: Normal right side. Normal left side Deep tendon reflexes: Normal at the biceps. Normal at Brachioradialis. Normal at triceps Vertebral body tenderness to deep palpation over C6 Cervical facet loading test: positive bilaterally over C4-C5, C5-C6 Spurling test: positive bilaterally Neck distraction test: positive bilaterally Nanette sign: positive bilaterally Lumbar spine Motor strength lower extremities ,thigh and legs 5/5 Right side , 5/5 Left side Deep tendon reflexes : Normal Knee Jerk. Normal Ankle Jerk Vertebral body tenderness Lumbar facet Loading Test: positive Right / positive Left Range of motion of the lumbar spine Flexion 30 degrees, extension 10 degrees Straight Leg Raise test: Left/ Right positive at 35 degrees Osman test: positive right / positive left. Severe tenderness over the Sacroiliac joint on the Right / Left sides Gaenslen test: positive bilaterally Seated flexion test: positive bilaterally. Sacral spine : Severe tenderness over the Sacroiliac joint: right side / left side Range of motion: Flexion of the lumbar spine <60 degrees Range of motion: Extension of the lumbar spine <20 degrees Gaenslen's Test positive Girish's Test positive Osman test: positive right side / left side Thigh Thrust Test Sacral Thrust Test Imaging: MRI noncontrast of the lumbar spine from 06/20/22 reviewed Assessment/ Plan : Cervical DDD Recommendation of SCS Trial Dx M54.12, G89.4 Risks, benefits of procedure discussed and pt verbalized understanding. All questions answered. I have spent greater than 30 minutes on patient care today. Dr Bhandari was available by phone for the evaluation of this patient. The time was used to review the medical records including relevant urine studies and Prescription history (MAPs), review of the available imaging, evaluation and examination of the patient, coordination of care with the medical staff and if applicable referring physicians, as well as creation of the medical record PQRS Narrative: Smoking Status Former smoker Hx Alcohol Use (MH) Yes: SOCIAL Home Medications: Ambulatory Orders Cetirizine HCl [Zyrtec] 10 mg PO DAILY 10/29/17 Metoprolol Tartrate [Lopressor] 12.5 mg PO DAILY 07/11/22 traMADol HCL 100 mg PO BID PRN 07/11/22 Acetaminophen [Tylenol Arthritis] 650 mg PO BID 09/08/22 Controlled Substance Measures - Controlled Substance Measures Is patient prescribed a controlled substance at discharge?: No
== END ==
LOC: PNWHC3 09:27
PROVIDERS: ATTEND Specialist
DX: M50.321 Other cervical disc degeneration at C4-C5 level (principal); M50.322 Other cervical disc degeneration at C5-C6 level; Z87.891 Personal history of nicotine dependence
CPT/HCPCS: 99211

== ENCOUNTER → 2023-04-23 | Outpatient (CLI) | payer BC ==
--- NOTE | 2023-04-23 13:15 | US ---
EXAMINATION TYPE: US venous doppler duplex UE LT DATE OF EXAM: 04/23/2023 COMPARISON: NONE CLINICAL INDICATION: Female, 57 years old with history of M79.622 PAIN IN ARM R22.32 SWELLING; Pain l eft arm for 3 days SIDE PERFORMED: left TECHNIQUE: Grayscale, color doppler, spectral doppler imaging performed of the deep veins of the lef t upper extremity. FINDINGS: There is normal flow, compressibility and vascular waveforms. Left Arm: no evidence of DVT IMPRESSION: No evidence of DVT within the left upper extremity.
== END | disposition home or self-care (01) ==
LOC: RADUSWWP 12:20
PROVIDERS: ATTEND Family Medicine
DX: M79.622 Pain in left upper arm (principal); R22.32 Localized swelling, mass and lump, left upper limb

== ENCOUNTER → 2023-06-16 | Outpatient (CLI) | payer BC ==
--- NOTE | 2023-06-18 09:23 | MM ---
Reason for Exam: Screening (asymptomatic). Last mammogram was performed 1 year(s) and 1 month(s) ago. Patient History: Menarche at age 13. First Full-Term at age 21. Postmenopausal. 2005, Bilateral Implants. 1995, Bilateral Implants. Risk Values: Galilea 5 year model risk: 1.1%. NCI Lifetime model risk: 7.1%. Prior Study Comparison: 10/06/2017 Bilateral Screening Mammogram, [facility]. 05/23/2021 Bilateral Screening Mammogram, [facility]. 05/29/2022 Bilateral MG screening mammo implant/CAD, [facility]. Tissue Density: The breasts are almost entirely fatty. Findings: Analyzed By CAD. Bilateral breast implants appear intact. Right breast: There is no suspicious group of microcalcifications or new suspicious mass. Left breast: There is no suspicious group of microcalcifications or new suspicious mass. Overall Assessment: Benign, BI-RAD 2 Management: Screening Mammogram of both breasts in [address] [facility] will attempt to contact patient to return for supplemental views and ultrasound if indicated. Patient should continue monthly self-breast exams. A clinical breast exam by your physician is recommended on an annual basis. This exam should not preclude additional follow-up of suspicious palpable abnormalities. Note on Galilea scores and lifetime risk: 1. A Galilea score greater than 3% is considered moderate risk. If this is the case, consider specialist referral to assess eligibility for a risk reducing agent. 2. If overall lifetime risk for the development of breast cancer is 20% or higher, the patient may qualify for future screening with alternating mammogram and breast MRI. Electronically signed and approved by: Deven Romero DO
== END | disposition home or self-care (01) ==
LOC: RADMAMWWP 13:57
PROVIDERS: ATTEND Family Medicine
DX: Z12.31 Encounter for screening mammogram for malignant neoplasm of breast (principal); Z78.0 Asymptomatic menopausal state
CPT/HCPCS: 77063; 77067

== ENCOUNTER → 2024-08-29 | Outpatient (CLI) | payer BC ==
--- NOTE | 2024-08-29 17:22 | MM ---
Reason for Exam: Screening (asymptomatic). Last mammogram was performed 1 year(s) and 2 month(s) ago. Patient History: Menarche at age 13. First Full-Term at age 21. Postmenopausal. 2005, Bilateral Implants. 1995, Bilateral Implants. Risk Values: Galilea 5 year model risk: 1.2%. NCI Lifetime model risk: 6.7%. Prior Study Comparison: 05/23/2021 Bilateral Screening Mammogram, [facility]. 05/29/2022 Bilateral MG screening mammo implant/CAD, [facility]. 06/16/2023 Bilateral MG 3D screen mammo imp/cad., [facility]. Tissue Density: There are scattered areas of fibroglandular density. Findings: Analyzed By CAD. Retropectoral silicone implants. There is no suspicious group of microcalcifications or new suspicious mass in either breast. Overall Assessment: Negative, BI-RAD 1 Management: Screening Mammogram of both breasts in 1 year. Patient should continue monthly self-breast exams. A clinical breast exam by your physician is recommended on an annual basis. This exam should not preclude additional follow-up of suspicious palpable abnormalities. Note on Galilea scores and lifetime risk: 1. A Galilea score greater than 3% is considered moderate risk. If this is the case, consider specialist referral to assess eligibility for a risk reducing agent. 2. If overall lifetime risk for the development of breast cancer is 20% or higher, the patient may qualify for future screening with alternating mammogram and breast MRI. [facility], , 08/29/2024 5:19 PM. Electronically signed and approved by: Melina Jensen M.D. Radiologist
== END | disposition home or self-care (01) ==
LOC: RADMAMWWP 11:41
PROVIDERS: ATTEND Family Medicine
DX: Z12.31 Encounter for screening mammogram for malignant neoplasm of breast (principal); R92.323 Mammographic fibroglandular density, bilateral breasts; Z78.0 Asymptomatic menopausal state; Z98.82 Breast implant status
CPT/HCPCS: 77063; 77067

== ENCOUNTER → 2024-09-13 | Outpatient (CLI) | payer BC ==
--- NOTE | 2024-09-13 10:12 | MR ---
EXAMINATION TYPE: MR lumbar spine wo con DATE OF EXAM: 09/13/2024 10:00 AM COMPARISON: 06/20/2022 CLINICAL INDICATION: Female, 59 years old with history of M51.369 OTH INTVRT DISC DEGEN, LUM RGN W/O LUM BCK, Rt leg numbness and pain into rt foot TECHNIQUE: Multiplanar, multisequence images of the lumbar spine were acquired without IV contrast. FINDINGS: Vertebral body heights are preserved. Conus medullaris is normal. No suspicious bone marrow replacement. Moderate to advanced hypertrophic facet arthropathy mid to lower lumbar spine with degenerative grade 1 anterolisthesis at L4-L5. Remaining alignment is maintained. There is moderate degenerative disc disease with narrowed, desiccated, and bulging disks mid and lowe r lumbar spine. Bulging disks particularly at L3-L4 and L4-L5 compressing the ventral thecal sac but does not contrib jamul any significant spinal canal stenosis. On the right, results in mild neuroforaminal stenosis at L3-L4 and moderate at L4-L5. At L4-L5, bulgi ng disc may abut the traversing right L5 nerve root. Refer to sagittal image 11. On the left, there is mild neural foraminal stenosis at L3-L4 and L5-S1, [id number] at L4-L5. No prevertebral paravertebral soft tissue abnormality is seen. IMPRESSION: 1. Moderate degenerative disc disease along with moderate to advanced hypertrophic facet arthropathy mid to lower lumbar spine. Degenerative grade 1 anterolisthesis L4-L5. 2. Bulging disks impress onto the ventral thecal sac at L3-L4 and L4-L5 but without any significant s queenie canal stenosis. 3. Variable mild neuroforaminal stenoses mid and lower lumbar spine as outlined above. Moderate on th e right at L4-L5. Bulging disc at this level may abut the traversing right L5 nerve root. [facility], , 09/13/2024 10:10 AM
== END | disposition home or self-care (01) ==
LOC: RADMRIMAIN 08:50
PROVIDERS: ATTEND Family Medicine
DX: M51.360 Other intervertebral disc degeneration, lumbar region with discogenic back pain only (principal); M48.061 Spinal stenosis, lumbar region without neurogenic claudication; M43.16 Spondylolisthesis, lumbar region; M47.816 Spondylosis without myelopathy or radiculopathy, lumbar region
CPT/HCPCS: 72148